=== PATIENT | female | born 1945 | race Caucasian/White ===

== ENCOUNTER 2020-03-31 09:51 | Outpatient (CLI) | payer MEDICARE, SELFPAY ==
--- NOTE | ~2020-03-31 | DEXA_ITS ---
Bone Density Report Name: Erin Russell Age: 74 Sex: Female Ethnicity: White Date of : 1945 Indication: osteopenia; parental hip fracture; height loss; prior fracture; postmenopausal Referring Provider: PATT, BERNARDA Travis Study: Bone densitometry was performed. Exam Date: March 31, 2020 Accession number: [id number] Bone Density: Region BMD T-score Z-score Classification AP Spine (L1-L4) 1.028 -0.2 2.1 Normal Femoral Neck (Left) 0.672 -1.6 0.4 Osteopenia Total Hip (Left) 0.829 -0.9 0.8 Normal Total Hip Bilateral Avg 0.799 -1.1 0.6 Osteopenia Femoral Neck (Right) 0.600 -2.2 -0.2 Osteopenia Total Hip (Right) 0.769 -1.4 0.3 Osteopenia World Health Organization criteria for BMD impression classify patients as: Normal (T-score at or above -1.0), Osteopenia (T-score between -1.0 and -2.5), or Osteoporosis (T-score at or below -2.5). 10-year Fracture Risk(1): Major Osteoporotic Fracture 33% Hip Fracture 16% Reported Risk Factors: [place] (), Neck BMD=0.600, BMI=25.5, previous fracture, parental fracture (1) FRAX(R) Version 3.08. Fracture probability calculated for an untreated patient. Fracture probability may be lower if the patient has received treatment. Previous Exams: Region Exam Age BMD T-score BMD Change BMD Change Date g/cm2 vs Baseline vs Previous AP Spine(L1-L4) 03/31/2020 74 1.028 -0.2 0.003(0.3%)# -0.021(-2.0%) 02/09/2017 71 1.049 0.0 0.024(2.3%)# 0.016(1.5%)# 01/08/2009 63 1.033 -0.1 0.008(0.8%) 0.011(1.1%) 07/22/2006 60 1.022 -0.2 -0.003(-0.3%) -0.003(-0.3%) 09/10/2003 57 1.026 -0.2 Total Hip(Left) 03/31/2020 74 0.829 -0.9 -0.018(-2.2%)# -0.038(-4.4%)* 02/09/2017 71 0.867 -0.6 0.019(2.3%)# 0.030(3.6%)# 01/08/2009 63 0.837 -0.9 -0.011(-1.2%) 0.014(1.7%) 07/22/2006 60 0.823 -1.0 -0.025(-2.9%) -0.025(-2.9%) 09/10/2003 57 0.848 -0.8 Total Hip(Right) 03/31/2020 74 0.769 -1.4 -0.002(-0.2%)# -0.029(-3.6%)* 02/09/2017 71 0.797 -1.2 0.027(3.5%)# 0.030(3.9%)# 01/08/2009 63 0.767 -1.4 -0.003(-0.4%) 0.008(1.1%) 07/22/2006 60 0.759 -1.5 -0.011(-1.5%) -0.011(-1.5%) 09/10/2003 57 0.770 -1.4 *Denotes significance at 95% confidence level, LSC for AP Spine = 0.022 g/cm2, LSC for Total Hip = 0.027 g/cm2 Clinical Information Provided by Patient: Has had a low trauma fracture Parent has had a hip fracture Patient maximum height was 64 Menopause Age: 46 No re
== END 2020-03-31 09:52 | disposition home or self-care (01) ==
PROVIDERS: PCP Internal Medicine; Visit Provider Internal Medicine
DX: Z13.820 Encounter for screening for osteoporosis (principal); Z78.0 Asymptomatic menopausal state; M85.852 Other specified disorders of bone density and structure, left thigh; M85.851 Other specified disorders of bone density and structure, right thigh
CPT/HCPCS: 77080

== ENCOUNTER 2020-07-06 14:58 | Emergency (ER) | payer MEDICARE, SELFPAY ==
--- NOTE | ~2020-07-06 | XR_ITS ---
EXAMINATION: XR chest 1V portable DATE: 07/06/2020 16:02 INDICATION: Fever, fatigue and vomiting TECHNIQUE: frontal view of the chest was obtained. COMPARISON: Chest radiograph dated 02/08/2005 FINDINGS: The lungs remain clear with no focal airspace opacities, pulmonary edema, pleural effusion or pneumot horax. The cardiomediastinal silhouette is normal. Visualized bones and soft tissues are unremarkable . IMPRESSION: 1. No acute cardiopulmonary disease. Reviewed, dictated and finalized at location A.
[2020-07-06 15:01] VITALS: BP 162/78; PULSE 83; RESP 16; TEMP 36.8; O2SAT 98
--- NOTE | 2020-07-06 15:26 | ED.FEVER ---
HPI - Fever General Chief Complaint: Fever Stated Complaint: fever Time Seen by Provider: 07/06/20 15:04 Source: patient Mode of arrival: ambulatory Limitations: no limitations History of Present Illness HPI Narrative: Patient is a 74-year-old female who presents to emergency department for evaluation of fever that began last Tuesday coupled with nausea and vomiting that lasted 1 day with the nausea and vomiting which resolved patient did not take anything for her symptoms patient then notes that she has had some fatigue and what she believes to be fever off and on since patient has not been seen for this complaint Related Data Home Medications Medication Instructions Recorded Confirmed No Home Medications 07/06/20 07/06/20 Allergies Allergy/AdvReac Type Severity Reaction Status Date / Time No Known Allergies Allergy Verified 07/06/20 15:10 Review of Systems Review of Systems: All systems reviewed & are unremarkable except as noted in HPI and below PMFSH Family History Family History (Updated 08/17/16 @ 13:47 by DOCTOR UNKNOWN) Mother Family history of cardiovascular disease Father Family history of congestive heart failure Other Cerebrovascular accident Hypertension Social History Social History Smoking status: Never smoker Second hand tobacco smoke exposure: No Smoking end date: 10/03/89 Alcohol intake: current Exam Narrative: Exam Narrative: GENERAL: Well-appearing, well-nourished, and in no acute distress. HEAD: Normocephalic, atraumatic. EYES: PERRLA and EOMI. ENT: Nares clear, no rhinorrhea or epistaxis. Mucous membranes moist. NECK: Supple. No adenopathy or masses. CHEST: Clear to auscultation. No respiratory distress. No wheezes rales or rhonchi HEART: Regular rate and rhythm. No murmur heard. Normal peripheral pulses. ABDOMEN: Soft, nontender, nondistended EXTREMITIES: Normal range of motion. No edema. SKIN: Warm, dry, no rash. NEURO: No focal deficits. Alert and oriented x3. PSYCH: Normal mood and affect. 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 Patient in the room in no distress given medications in the emergency department no concerning findings in the evaluation advised to follow with primary care for further evaluation Vital Signs Vital signs: Vital Signs Temperature 98.3 F 07/06/20 15:01 Pulse Rate 83 07/06/20 15:01 Respiratory Rate 16 07/06/20 15:01 Blood Pressure 162/78 H 07/06/20 15:01 Pulse Oximetry 98 07/06/20 15:01 Temperature 97.5 F L 07/06/20 15:50 Pulse Rate 69 07/06/20 16:33 Respiratory Rate 20 07/06/20 16:33 Blood Pressure 162/77 H 07/06/20 16:33 Pulse Oximetry 100 07/06/20 16:33 MDM - Fever MDM Narrative Medical decision making narrative: Patient presents in no distress without fever no high risk changes in the blood work or imaging unsure as to the etiology of her symptoms advised to follow with primary care given reasons to return Lab Data Result diagrams: 07/06/20 15:20 07/06/20 15: Labs: Lab Results 07/06/20 07/06/20 07/06/20 Range/Units 15:20 15:20 15:23 WBC 9.9 (4.5-10.0) K/mm3 RBC 3.66 L (4.2-5.4) M/mm3 Hgb 11.3 L (12.0-15.0) g/dL Hct 34.1 L (37.0-47.0) % MCV 93.2 (80-100) fl MCH 30.9 (26-34) pg MCHC 33.1 (32-36) g/dl RDW 12.7 (11.5-14.5) % Plt Count 320 (150-375) k/mm3 MPV 10.7 H (7.4-10.4) fl Immature Gran % (Auto) 0.3 (0-0.5) % Neut % (Auto) 58.9 (45.5-73.1) % Lymph % (Auto) 29.0 (18.3-44.2) % [place] % (Auto) 8.3 (2.6-8.5) % Eos % (Auto) 3.3 (0-4.4) % Baso % (Auto) 0.2 (0.2-1.2) % Lymph # (Auto) 2.88 (0.9-3.2) K/mm3 [place] # (Auto) 0.8 H (0.1-0.6) K/mm3 Eos # (Auto) 0.3 (0-0.3) K/mm3 Baso # (Auto) 0.0 (0.0-0.1) K/mm3 Abs Immat Gran (auto) 0.03 (0.00-0.031) K/mm3 Absolute Neuts (auto) 5.9 (1.3-6.7) K/
[2020-07-06 15:29] LABS: Basophils Percent Auto 0.2 % (0.2-1.2); Eosinophils Absolute Auto 0.3 K/mm3 (0-0.3); Eosinophils Percent Auto 3.3 % (0-4.4); Hematocrit 34.1 % (37.0-47.0); Hemoglobin 11.3 g/dL (12.0-15.0); Immature Granulocyte Absolute 0.03 K/mm3 (0.00-0.031); Immature Granulocyte Percent A 0.3 % (0-0.5); Lymphocytes Absolute Auto 2.88 K/mm3 (0.9-3.2); Mean Corpuscular HGB Conc 33.1 g/dl (32-36); Mean Corpuscular Hemoglobin 30.9 pg (26-34); Mean Corpuscular Volume 93.2 fl (80-100); Mean Platelet Volume 10.7 fl (7.4-10.4); Monocytes Absolute Auto 0.8 K/mm3 (0.1-0.6); Monocytes Percent Auto 8.3 % (2.6-8.5); Neutrophils Absolute Auto 5.9 K/mm3 (1.3-6.7); Neutrophils Percent Auto 58.9 % (45.5-73.1); Platelet Count Result 320 k/mm3 (150-375); Red Blood Count 3.66 M/mm3 (4.2-5.4); Red Cell Distribution Width 12.7 % (11.5-14.5); White Blood Count 9.9 K/mm3 (4.5-10.0)
[2020-07-06 15:41] LABS: Alanine Aminotransferase 27 U/L (4-35); Albumin Level 4.2 g/dL (3.5-5.1); Alkaline Phosphatase 58 U/L (38-126); Anion Gap 10 mmol/L (8-16); Aspartate Amino Transferase 29 U/L (14-36); Bilirubin,Total 0.4 mg/dL (0.2-1.3); Blood Urea Nitrogen 8 mg/dL (7-17); Calcium 9.4 mg/dL (8.4-10.2); Carbon Dioxide 31 mmol/L (22-30); Chloride 97 mmol/L (98-107); Estimated CRCL calculation 35 ml/min; Estimated Glomerular Filt Rate 54; Glucose 92 mg/dL (65-105); Sodium 138 mmol/L (137-145)
[2020-07-06] MEDS: ONDANSETRON INJ 4 MG/2 ML VIAL IV PUSH (15:41)
[2020-07-06 15:42] LABS: Add Urine Microscopic? NO; Appearance Urine Clear (Clear); Bilirubin Urine Negative (Negative); Blood Urine Negative (Negative); Color Urine Colorless (Yellow); Glucose Urine UA Negative (Negative); Ketones Urine Negative (Negative); Leukocyte Esterase Ur Negative LEU/UL (Negative); Nitrate Urine Negative (Negative); Protein Urine Negative (Negative); Specific Grav Ur 1.005 (1.001-1.035); Urobilinogen Urine Negative mg/dL (<2.0)
[2020-07-06] MEDS: FAMOTIDINE 20 MG/2 ML VIAL IV PUSH (15:42)
[2020-07-06] MEDS: LACTATED RINGERS 1,000 ML 999 ML IV CONT (15:47)
[2020-07-06 15:50] VITALS: BP 163/76; PULSE 63; RESP 20; TEMP 36.4; O2SAT 100
[2020-07-06 16:33] VITALS: BP 162/77; PULSE 69; RESP 20; O2SAT 100
[2020-07-06 16:52] VITALS: BP 162/77; PULSE 69; RESP 20; TEMP 36.5; O2SAT 100
== END 2020-07-06 16:54 | disposition home or self-care (01) ==
LOC: ANHED 16:46
PROVIDERS: Emergency Medicine Emergency Medical Services; Emergency Provider Emergency Medicine; PCP Internal Medicine
DX: R50.9 Fever, unspecified (principal)
CPT/HCPCS: 36415; 71045; 80053; 81003; 83605; 85025; 96361; 96365; 96375; 99284; J0131; J2405; J7120

== ENCOUNTER 2020-10-13 08:31 | Outpatient (CLI) | payer MEDICARE, SELFPAY ==
--- NOTE | ~2020-10-13 | MM_ITS ---
EXAMINATION: MM screening wali BI w claudette HISTORY: Screening TECHNIQUE: Craniocaudal and mediolateral oblique 3-D tomosynthesis images were obtained and synthetic 2-D images were generated. CAD analysis was submitted and interpreted. COMPARISON: Comparison to multiple prior studies sequentially, with oldest reviewed study dated 04/15. BREAST PARENCHYMAL COMPOSITION: There are scattered areas of fibroglandular density. FINDINGS: There is no evidence of suspicious mass, calcification, or architectural distortion to sugg est malignancy in either breast. There has been no suspicious interval change. IMPRESSION: 1. No mammographic evidence of malignancy. 2. Recommend routine screening mammography in one year. BI-RADS Category 1: Negative Reviewed, dictated and finalized at location A. EEN MANAGER
== END 2020-10-13 08:32 | disposition home or self-care (01) ==
LOC: ANHIMG 08:34
PROVIDERS: PCP Internal Medicine; Visit Provider Internal Medicine
DX: Z12.31 Encounter for screening mammogram for malignant neoplasm of breast (principal)
CPT/HCPCS: 77063; 77067

== ENCOUNTER 2021-11-17 10:08 | Outpatient (CLI) | payer MEDICARE, SELFPAY ==
--- NOTE | ~2021-11-17 | MM_ITS ---
EXAMINATION: MM screening wali BI w claudette HISTORY: Screening TECHNIQUE: Craniocaudal and mediolateral oblique 3-D tomosynthesis images were obtained and synthetic 2-D images were generated. CAD analysis was submitted and interpreted. COMPARISON: Comparison to multiple prior studies sequentially, with oldest reviewed study dated 04/23. BREAST PARENCHYMAL COMPOSITION: Breast composed of scattered areas of fibroglandular density. FINDINGS: There is no evidence of suspicious mass, calcification, or architectural distortion to sugg est malignancy in either breast. There has been no suspicious interval change. IMPRESSION: 1. No mammographic evidence of malignancy. 2. Recommend routine screening mammography in one year. BI-RADS Category 1: Negative Reviewed, dictated and finalized at location A. [employer] ARCHITECT
== END 2021-11-17 10:09 | disposition home or self-care (01) ==
LOC: ANHIMG 10:11
PROVIDERS: PCP Internal Medicine; Visit Provider Internal Medicine
DX: Z12.31 Encounter for screening mammogram for malignant neoplasm of breast (principal)
CPT/HCPCS: 77063; 77067

== ENCOUNTER → 2022-05-25 12:25 | Outpatient (CLI) | payer MEDICARE, SELFPAY ==
--- NOTE | ~2022-05-25 | DEXA_ITS ---
Bone Density Report Name: JOSUÉ BAKER Age: 76 Sex: Female Ethnicity: White Date of : 1945 Indication: postmenopausal; screening for osteoporosis; parental hip fracture; height loss; prior fracture; Referring Provider: PATT, BERNARDA Travis Study: Bone densitometry was performed. Exam Date: May 25, 2022 Accession number: [id number] Bone Density: Region BMD T-score Z-score Classification AP Spine (L1-L4) 1.138 0.8 3.3 Normal Femoral Neck (Left) 0.672 -1.6 0.5 Osteopenia Total Hip (Left) 0.838 -0.9 1.0 Normal Femoral Neck (Right) 0.660 -1.7 0.4 Osteopenia Total Hip (Right) 0.780 -1.3 0.5 Osteopenia Total Hip Mean 0.809 -1.1 0.8 Osteopenia World Health Organization criteria for BMD impression classify patients as: Normal (T-score at or above -1.0), Osteopenia (T-score between -1.0 and -2.5), or Osteoporosis (T-score at or below -2.5). 10-year Fracture Risk: FRAX not reported because: Treated for osteoporosis Clinical Information Provided by Patient: Has had a low trauma fracture Parent has had a hip fracture Is being treated for osteoporosis Has used the following medications: Fosamax (i.e. alendronate), Vitamin D, Calcium Patient maximum height was 64 Menopause Age: 41 No regular weight bearing exercise Does not regularly consume dairy products Drinks caffeinated beverages Onset of menses at age 17 Number of children 0 Impression: The patient has low bone mass, based on the Right Femoral Neck T-score. The patient has risk factors, including: parental hip fracture, previous fracture. Discussion: It is important to ask patients whether they are taking their medications and to encourage continued and appropriate compliance with their osteoporosis therapies to reduce fracture risk. It is also important to review their risk factors and encourage appropriate calcium and vitamin D intakes, exercise, fall prevention and other lifestyle measures. Follow-Up: Consider a repeat BMD and Vertebral Fracture Assessment (VFA) exam in 2 years or sooner if medically necessary, to reassess this patient's status. Reported by: MARCELO on 05/25/2022 12:58:00 PM. Reviewed, dictated and finalized at location ALei GONZALES
== END ==
PROVIDERS: PCP Internal Medicine; Visit Provider Internal Medicine
DX: M81.0 Age-related osteoporosis without current pathological fracture (principal); M85.852 Other specified disorders of bone density and structure, left thigh; M85.851 Other specified disorders of bone density and structure, right thigh
CPT/HCPCS: 77080

== ENCOUNTER 2024-12-29 09:41 | Emergency (ER) | payer MEDICARE, SELFPAY ==
[2024-12-29] VITALS (9 sets, daily range): BP systolic 140–166; BP diastolic 62–70; PULSE 63–88; RESP 8–16; TEMP 36.3; O2SAT 96–100
--- NOTE | ~2024-12-29 | XR_ITS ---
EXAMINATION: XR scapula RT DATE: 12/29/2024 10:53 INDICATION: Right scapula pain. TECHNIQUE: 2 views of right scapula were obtained. COMPARISON: None. FINDINGS: Alignment is normal. No fracture. There is mild osteoarthritis of glenohumeral joint and ac romioclavicular joint. IMPRESSION: 1. Mild polyarticular osteoarthritis. Reviewed, dictated and finalized at location A.
--- OUTSIDE RECORDS SUMMARY | 2024-12-29 09:43 | XMS_ITS | Data Portability ---
Author Organization [facility] [employer], Main Office Address [address] [place] [address] Assessment No assessment recorded. Plan of Treatment Reminders Order Date Submit Date Provider Last Modified By Organization Details Last Modified Time Details Appointments None recorded. Lab lipid panel, serum 024 024 [email or web address] [facility], [address], [place], [address], 4 13:53:42 CMP, serum or plasma 024 024 [email or web address] [facility], [address], [place], [address], 4 13:53:45 CBC w/ auto diff 024 [address] [employer] [facility], [address], [place], [address], 4 13:19:39 vitamin D, 25-hydrox y, total, serum 023 023 [email or web address] [employer] [facility], [address], [place], [address], 3 16:41:28 magnesium , serum or plasma 023 023 [email or web address] [employer] [facility], [address], [place], [address], 3 16:41:28 vitamin B12, serum 023 023 [id number] [facility], [address], [place], [address], 3 16:41:28 CMP, serum or plasma 023 023 [facility], [address], [place], [address], 3 16:41:27 lipid panel, serum 023 023 [id number] [employer] [facility], [address], [place], [address], 3 16:41:27 CBC w/ auto diff 023 023 [id number] [employer] [facility], [address], [place], [address], 3 16:41:27 TSH, serum or plasma 023 023 [id number] [employer] [facility], [address], [place], [address], 3 16:41:28 T4, free, serum 023 023 [id number] [employer] [facility], [address], [place], [address], 3 16:41:28 Referral None recorded. Procedures None recorded. Surgeries None recorded. Imaging None recorded. Medication Orders None recorded. Patient TargetsNo targets recorded. Patient Instructions Encounter Date Encounter Id Patient Instructions Last Modified By Organization Details Last Modified Time 02/18/2023 [id number] dementia rating scale-2* [email or web address] Not available 02/18/2023 11:24:44 alcohol misuse* [email or web address] Not available 02/18/2023 11:24:44 depression screening* [email or web address] Not available 02/18/2023 11:24:44 multi-dimensiona l health assessment questionnaire* [email or web address] Not available 02/18/2023 11:24:44 Personalized [facility] Plan and Screening Recommendations Advance Directives - Do you have one? Yes Advance Directives - Do we have your advance directive on file in your health record? No, please bring in a copy at your earliest convenience Primary Prevention/Interven tion (prevents or decreases the chance of common diseases from occurring) Smoking Risk: Non Smoker Alcohol Misuse Screening: Negative Weight: Appropriate Physical activity: Need more exercise/physical activity Nutrition: Good Average Fall Risk (screened today): Low Vaccines Pneumococcal: Ordered Recommended today Recommended today, but you have declined No further needed Influenza: Your next one in the fall of this year Chronic Disease Risks Stroke: Low Risk Intermediate Risk I have no recommendations Act carlene diagnosis, Continue current treatment plan Heart Attack: Low risk Intermediate Risk I have no recommendations Act carlene diagnosis, Continue current treatment plan Clogging of the Arteries: Low risk Intermediate Risk I have no recommendations Act carlene diagnosis, Continue current treatment plan Diabetes: Low Risk I have no recommendations Secondary Prevention/Interven tion (detects treatable diseases before they may cause symptoms, disability, or ) Breast Cancer Screening with mammogram: Your next mammogram: Ordered Recommended today Recommended today, but you have declined Cervical/Uterine/Ov deondre Cancer Screening: No screening necessary Osteoporosis Screening: Date Screening Last Performed: Colon Cancer Screening: Colonoscopy In: Ordered Recomme nded Recommended today, but you have declined Date Screening Last Performed: Eye Disease Screening: Dementia Risk: Low I have no recommendations Depression Screening: Negative [email or web address] Not available 02/18/2023 11:12:35 Medicare [facility] s evaluation risk assessment stable. Follow-up hyperlipidemia -GERD -senile osteoporosis. All clinically stable. Refusing both mammogram as well as colon screening studies. Will continue on current medications check blood work consisting of CBC, CMP, magnesium, B12, lipid, thyroid and vitamin-D level. Follow-up in six months [email or web address] Not available 02/18/2023 11:24:13 08/19/2023 [id number] GERD and osteoporosis both clinically stable. Had recent blood work which showed good cholesterol total 175 HDL 71 LDL 84 normal thyroid liver enzymes. Blood sugar normal. Will continue on current Rx follow-up six months.Standard immunizations of RSV, COVID, influenza and shingles as recommended. Portions of the record may have been created with voice recognition software. Occasional wrong-word or s ound-a-like substitutions may have occurred due to the inherent limitations of voice recognition software. Read the chart carefully and recognize, using context, where substitutions have occurred. Job Next Appt: 6 Months Approximate Date: 02/15/2024 [email or web address] Not available 08/19/2023 11:26:32 02/28/2024 [id number] Follow-up for GE RD clinically doing well. No interval complaints of any new problems. Is currently taking famotidine on intermittent basis. Will continue on current Rx. Will check blood work in the form of a CBC, CMP and lipid.. Continue on current Rx follow-up in six months Next Appointment: 6 Months Approximate Date: 08/26/2024 Portions of the record may have been created with voice recognition software. Occasional wrong-word or s ound-a-like substitutions may have occurred due to the inherent limitations of voice recognition software. Read the chart carefully and recognize, using context, where substitutions have occurred. [email or web address] Not available 02/28/2024 11:21:14 08/21/2024 [id number] dementia rating scale-2* [email or web address] Not available 08/21/2024 11:46:56 alcohol misuse* [email or web address] Not available 08/21/2024 11:46:55 depression screening* [email or web address] Not available 08/21/2024 11:46:56 multi-dimensiona l health assessment questionnaire* [email or web address] Not available 08/21/2024 11:46:56 Personalized a lth Plan and Screening Recommendations Advance Directives - Do you have one? Yes Advance Directives - Do we have your advance directive on file in your health record? No, please bring in a copy at your earliest convenience Primary Prevention/Interven tion (prevents or decreases the chance of common diseases from occurring) Smoking Risk: Non Smoker Alcohol Misuse Screening: Negative Weight: Appropriate Physical activity: Need more exercise/physical activity Nutrition: Good Average Fall Risk (screened today): Low Vaccines Pneumococcal: Ordered Recommended today Recommended today, but you have declined No further needed Influenza: Your next one in the fall of this year Chronic Disease Risks Stroke: Low Risk I have no recommendations Heart Attack: Low risk I have no recommendations Clogging of the Arteries: Low risk I have no recommendations Diabetes: Low Risk I have no recommendations Secondary Prevention/Interven tion (detects treatable diseases before they may cause symptoms, disability, or ) Breast Cancer Screening with mammogram: Your next mammogram: Ordered Recommended today Recommended today, but you have declined Cervical/Uterine/Ov deondre Cancer Screening: No screening necessary Osteoporosis Screening: Your next DEXA in: Ordered Recomme nded today Recommended today, but you have declined Date Screening Last Performed: Colon Cancer Screening: Colonoscopy Fecal Occult Blood Cologuard (DNA stool test) Date Screening Last Performed: _2022___ Eye Disease Screening: Dementia Risk: Low I have no recommendations Depression Screening: Negative [email or web address] Not available 08/21/2024 11:38:58 Medicare [facility] evaluation risk assessment stable. Follow-up for GERD as well as hyperlipidemia both clinically stable and doing well. No need for any additional blood tests at this time. Is actually due for mammogram bone density scan is declining both of these currently. Will continue on current Rx follow-up in six months. Follow Up: 6 Months Approximate Date: 02/17/2025 Created: Chris Connolly M.D. 08.21.2024 10:46 AM Portions of the record may have been created with voice recognition software. Occasional wrong-word or s ound-a-like substitutions may have occurred due to the inherent limitations of voice recognition software. Read the chart carefully and recognize, using context, where substitutions have occurred. [email or web address] Not available 08/21/2024 11:46:36 Reason for Referral None Reported. Results Created Date Observation Date Name Description Value Unit Range Abnormal Flag Note LastModifiedBy Organization Detail LastModifiedTime 03/03/2003/03/2023 COMPR EHENS CARLENE METAB OLIC PANEL sodium 140 mmol/ L 137-14 5 Not Available [facility] (Lab) [address] [place], [address], 03/03/2023 13:03:27 03/03/20 23 03/03/2023 COMPR EHENS CARLENE METAB OLIC PANEL potassium 4.5 mmol/ L 3.5-5. 1 Not Available [facility] (Lab) [address] [place], [address], 03/03/2023 13:03:27 03/03/20 23 03/03/2023 COMPR EHENS CARLENE METAB OLIC PANEL chloride 101 mmol/ L 98-107 Not Available [facility] (Lab) [address] [place], [address], 03/03/2023 13:03:27 03/03/20 23 03/03/2023 COMPR EHENS CARLENE METAB OLIC PANEL carbon dioxide 29 mmol/ L 22-30 Not Available [facility] (Lab) [address] [place], [address], 03/03/2023 13:03:27 03/03/20 23 03/03/2023 COMPR EHENS CARLENE METAB OLIC PANEL anion gap 14.5 mmol/ L 14-22 Not Available [facility] (Lab) [address] [place], [address], 03/03/2023 13:03:27 03/03/20 23 03/03/2023 COMPR EHENS CARLENE METAB OLIC PANEL glucose 91 mg/dL 70-99 Not Available [facility] (Lab) [address] [place], [address], 03/03/2023 13:03:27 03/03/20 23 03/03/2023 COMPR EHENS CARLENE METAB OLIC PANEL BUN 12 mg/dL 8-19 Not Available [facility] (Lab) [address] [place], [address], 03/03/2023 13:03:27 03/03/20 23 03/03/2023 COMPR EHENS CARLENE METAB OLIC PANEL creatinine 0.61 mg/dL 0.66-1 .25 low Not Available [facility] (Lab) [address] [place], [address], 03/03/2023 13:03:27 03/03/20 23 03/03/2023 COMPR EHENS CARLENE METAB OLIC PANEL GFR >60 Refer ence Range : Mcintosh ge GFR Healt hy Adult : >60 mL/mi n/1.7 3 m2 Chron ic Kidne y Disea se: 15-60 mL/mi n/1.7 3 m2 Kidne y Failu re: <15/m L/min /1.73 m2 www.n iddk. nih.g ov The MDRD study equat ion has not been valid ated in child rigoberto <18 years of age; pregn ant women ; the elder ly >85 years of age; or in some racia l or ethni c subgr oups, such as Hispa nics. Outsi de the valid ated dean eters , estim ated GFR is less accur ate, requi ring clini layla judgm ent on a case- by-ca se basis . Clini layla inter preta tion for other races and ages must be made by the clini ivan. The MDRD study equat ion has not been valid ated for the evalu ation of serum creat inine relat ed to nutri ricci l statu s or medic ation usage . For perso ns <18 years of age, a pedia tric GFR calcu lator is avail able on the [facility] websi te: https ://alirio mcdonald.zhen jarquin/pr kimberley mendoza s/kdo qi/gf r_cal culat or Not Available [facility] (Lab) [address] [place], [address], 03/03/2023 13:03:27 03/03/2003/03/2023 COMPR EHENS CARLENE METAB OLIC PANEL alkaline phosphatase 43 U/L 38-126 Not Available [facility] (Lab) [address] [place], [address], 03/03/2023 13:03:27 03/03/2003/03/2023 COMPR EHENS CARLENE METAB OLIC PANEL alanine aminotransfe rase 17 U/L 0-35 Not Available [facility] (Lab) [address] [place], [address], 03/03/2023 13:03:27 03/03/20 23 03/03/2023 COMPR EHENS CARLENE METAB OLIC PANEL aspartate aminotransfe rase 25 U/L 15-37 Not Available [facility] (Lab) [address] [place], [address], 03/03/2023 13:03:27 03/03/20 23 03/03/2023 COMPR EHENS CARLENE METAB OLIC PANEL bilirubin, total 0.60 mg/dL 0.20-1 .30 Not Available [facility] (Lab) [address] [place], [address], 03/03/2023 13:03:27 03/03/20 23 03/03/2023 COMPR EHENS CARLENE METAB OLIC PANEL calcium 9.6 mg/dL 8.4-10 .2 Not Available [facility] (Lab) [address] [place], [address], 03/03/2023 13:03:27 03/03/20 23 03/03/2023 COMPR EHENS CARLENE METAB OLIC PANEL total protein 7.3 g/dL 6.3-8. 2 Not Available [facility] (Lab) [address] [place], [address], 03/03/2023 13:03:27 03/03/20 23 03/03/2023 COMPR EHENS CARLENE METAB OLIC PANEL albumin 4.2 g/dL 3.0-4. 4 Not Available [facility] (Lab) [address] [place], [address], 03/03/2023 13:03:27 03/03/20 23 03/03/2023 COMPR EHENS CARLENE METAB OLIC PANEL globulin 3.1 g/dL 2.6-4. 2 Not Available [facility] (Lab) [address] [place], [address], 03/03/2023 13:03:27 03/03/20 23 03/03/2023 COMPR EHENS CARLENE METAB OLIC PANEL A/G ratio 1.4 ratio 1.0-2. 0 Not Available [facility] (Lab) [address] [place] [address], [address], 03/03/2023 13:03:27 03/03/20 23 03/03/2023 LIPID PANEL cholesterol 175 mg/dL 140-19 9 NIH APOLINAR NSUS RECOM MENDA TION FOR ELMER STERO L: ADULT CHILD LOW RISK: <200 <170 BORDE RLINE : <200- 239 ----- HIGH RISK: >240 >200 Not Available [facility] (Lab) [address] [place] [address], [address], 03/03/2023 13:03:29 03/03/20 23 03/03/2023 LIPID PANEL triglyceride s 101 mg/dL 0-150 NIH APOLINAR NSUS REPOR T RECOM MENDA TION FOR TRIGL YCERI DUTCH: ADULT CHILD LOW RISK: <150 ----- BODER LINE: 150-1 99 ----- HIGH RISK: >200 ----- Not Available [facility] (Lab) [address] [place] [address], [address], 03/03/2023 13:03:29 03/03/20 23 03/03/2023 LIPID PANEL HDL cholesterol 71 mg/dL 40- Not Available [facility] (Lab) [address] [place] [address], [address], 03/03/2023 13:03:29 03/03/20 23 03/03/2023 LIPID PANEL LDL cholesterol, calculated 84 mg/dL 0-130 NIH APOLINAR NSUS REPOR T RECOM MENDA TIONS FOR LDL: ADULT CHILD LOW RISK <130 <110 (OPTI MAL LDL) <100 ----- BORDE RLINE : 130-1 59 ----- HIGH RISK: >160 >130 A TRIGL YCERI DE RESUL T >400 INVAL IDATE S THE CALCU LATIO N FOR LDL FRACT IONAT ION - THE LDL RESUL T WILL NOT BE REPOR THEODORE. Not Available [facility] (Lab) [address] [place], [address], 03/03/2023 13:03:29 03/03/20 23 03/03/2023 MAGNE SIUM magnesium 2.1 mg/dL 1.6-2. 3 Not Available [facility] (Lab) [address] [place], [address], 03/03/2023 13:03:30 03/03/20 23 03/03/2023 VITAM IN D 25-HY DROXY [id number] 38.1 NG/mL 30-100 Vitam in D Statu s: Defic ient: <20 ng/mL Insuf ficie nt: 20-29 ng/mL Suffi cient : 30-10 0 ng/mL Not Available [facility] (Lab) [address] [place], [address], 03/03/2023 13:18:18 03/03/20 23 03/03/2023 CBC/C OMPLE TE BLD COUNT W/DIF F white blood cells 8.0 x10'3 /uL 4.2-10 .8 Not Available [facility] (Lab) [address] [place], [address], 03/03/2023 13:32:53 03/03/20 23 03/03/2023 CBC/C OMPLE TE BLD COUNT W/DIF F red blood cells 3.89 x10'6 /uL 3.80-5 .20 Not Available [facility] (Lab) [address] [place], [address], 03/03/2023 13:32:53 03/03/20 23 03/03/2023 CBC/C OMPLE TE BLD COUNT W/DIF F hemoglobin 12.0 g/dL 12.0-1 5.6 Not Available [facility] (Lab) [address] [place], [address], 03/03/2023 13:32:53 03/03/20 23 03/03/2023 CBC/C OMPLE TE BLD COUNT W/DIF F hematocrit 37.6 % 35.7-4 5.7 Not Available [facility] (Lab) [address] [facility] [place], [address], 03/03/2023 13:32:53 03/03/20 23 03/03/2023 CBC/C OMPLE TE BLD COUNT W/DIF F mean red cell volume 96.7 fL 82.0-9 9.0 Not Available [facility] (Lab) [address] [place], [address], 03/03/2023 13:32:53 03/03/20 23 03/03/2023 CBC/C OMPLE TE BLD COUNT W/DIF F mean red cell hemoglobin 30.8 pg 27.0-3 3.0 Not Available [facility] (Lab) [address] [place], [address], 03/03/2023 13:32:53 03/03/20 23 03/03/2023 CBC/C OMPLE TE BLD COUNT W/DIF F mean RBC HGB concentratio n 31.9 g/dL 31.0-3 6.0 Not Available [facility] (Lab) [address] [place], [address], 03/03/2023 13:32:53 03/03/20 23 03/03/2023 CBC/C OMPLE TE BLD COUNT W/DIF F red cell distribution width 13.3 % 11.8-1 5.5 Not Available [facility] (Lab) [address] [place], [address], 03/03/2023 13:32:53 03/03/20 23 03/03/2023 CBC/C OMPLE TE BLD COUNT W/DIF F platelets 246 x10'3 /uL 150-40 0 Not Available [facility] (Lab) [address] [place], [address], 03/03/2023 13:32:53 03/03/20 23 03/03/2023 CBC/C OMPLE TE BLD COUNT W/DIF F mean platelet volume 11.5 fL 9.0-12 .4 Not Available [facility] (Lab) [address] [facility] [place], [address], 03/03/2023 13:32:53 03/03/20 23 03/03/2023 CBC/C OMPLE TE BLD COUNT W/DIF F neutrophils 49.0 % 39.0-7 2.0 Not Available [facility] (Lab) [address] [place], [address], 03/03/2023 13:32:53 03/03/20 23 03/03/2023 CBC/C OMPLE TE BLD COUNT W/DIF F lymphocytes 38.7 % 16.0-4 7.0 Not Available [facility] (Lab) [address] [place], [address], 03/03/2023 13:32:53 03/03/20 23 03/03/2023 CBC/C OMPLE TE BLD COUNT W/DIF F monocytes 7.9 % 5.0-12 .0 Not Available [facility] (Lab) [address] [place], [address], 03/03/2023 13:32:53 03/03/20 23 03/03/2023 CBC/C OMPLE TE BLD COUNT W/DIF F eosinophils 3.8 % 1.0-7. 0 Not Available [facility] (Lab) [address] [place], [address], 03/03/2023 13:32:53 03/03/20 23 03/03/2023 CBC/C OMPLE TE BLD COUNT W/DIF F basophils 0.3 % 0.0-2. 0 Not Available [facility] (Lab) [address] [place], [address], 03/03/2023 13:32:53 03/03/20 23 03/03/2023 CBC/C OMPLE TE BLD COUNT W/DIF F immature granulocytes 0.3 % 0.00-0 .50 Not Available [facility] (Lab) [address] [place], [address], 03/03/2023 13:32:53 03/03/20 23 03/03/2023 CBC/C OMPLE TE BLD COUNT W/DIF F neutrophils, absolute count 3.91 x10'3 /uL 1.5-8. 0 Not Available [facility] (Lab) [address] [place], [address], 03/03/2023 13:32:53 03/03/20 23 03/03/2023 CBC/C OMPLE TE BLD COUNT W/DIF F lymphocytes, absolute count 3.08 x10'3 /uL 1.07-3 .43 Not Available [facility] (Lab) [address] [place], [address], 03/03/2023 13:32:53 03/03/20 23 03/03/2023 CBC/C OMPLE TE BLD COUNT W/DIF F monocytes, absolute count 0.63 x10'3 /uL 0.29-0 .99 Not Available [facility] (Lab) [address] [place], [address], 03/03/2023 13:32:53 03/03/20 23 03/03/2023 CBC/C OMPLE TE BLD COUNT W/DIF F eosinophils, absolute count 0.30 x10'3 /uL 0.02-0 .53 Not Available [facility] (Lab) [address] [place], [address], 03/03/2023 13:32:53 03/03/20 23 03/03/2023 CBC/C OMPLE TE BLD COUNT W/DIF F basophils, absolute count 0.02 x10'3 /uL 0.01-0 .08 Not Available [facility] (Lab) [address] [place], [address], 03/03/2023 13:32:53 03/03/20 23 03/03/2023 CBC/C OMPLE TE BLD COUNT W/DIF F immature granulocytes ,absolute 0.02 x10'3 /uL 0.00-0 .05 Not Available [facility] (Lab) [address] [place], [address], 03/03/2023 13:32:53 03/03/20 23 03/03/2023 CBC/C OMPLE TE BLD COUNT W/DIF F nucleated red blood cells 0.0 % -0 Not Available [facility] (Lab) [address] [place], [address], 03/03/2023 13:32:53 03/03/20 23 03/03/2023 CBC/C OMPLE TE BLD COUNT W/DIF F NRBC# 0.00 x10'3 /uL Not Available [facility] (Lab) [address] [place], [address], 03/03/2023 13:32:53 03/03/20 23 03/03/2023 VITAM IN B12 (JUAN FATOU ) vb12 480 pg/mL 239-93 1 Not Available [facility] (Lab) [address] [place], [address], 03/03/2023 13:55:22 03/03/20 23 03/03/2023 T4 FREE free T4 1.07 NG/dL 0.78-2 .19 Not Available [facility] (Lab) [address] [place], [address], 03/03/2023 14:35:56 03/03/20 23 03/03/2023 TSH thyroid-stim ulating hormone 2.300 uIU/m L 0.465- 4.680 Not Available [facility] (Lab) [address] [facility] [place], [address], 03/03/2023 14:37:08 08/30/20 23 08/30/2023 COLOG UARD cologuard result reportable NEGATI VE negati ve normal NEGAT CARLENE TEST RESUL T. A negat carlene Colog uard resul t indic ates a low likel ihood that a color ectal cance r (CRC) or advan akanksha adeno ma (brandon omato us polyp s with more advan akanksha pre-m align ant featu res) is prese nt. The chanc e that a perso n with a negat carlene Colog uard test has a color ectal cance r is less than 1 in 1500 (nega tive predi ctive value >99.9 %) or has an advan akanksha adeno ma is less than 5.3% (nega tive predi ctive value 94.7% ). These data are based on a prosp ectiv e cross -sect ional study of 10,00 0 indiv idual s at [facility] risk for color ectal cance r who were scree tia with both Colog uard and colon oscop y. (Jayne Garcia. et al, N Engl J Med 2014; 370(1 4):12 86-12 97) The mason l value (refe rence range ) for this assay is negat carlene. COLOG UARD RE-SC REENI NG RECOM MENDA TION: Perio dic color ectal cance r scree andie is an impor tant part of preve ntive healt hcare for asymp tomat ic indiv idual s at [facility] risk for color ectal cance r. Follo wing a negat carlene Colog uard resul t, the Ameri can Cance r Socie ty and U.S. Multi -Soci ety Task Force scree andie guide lines recom mend a Colog uard re-sc reeni ng inter sohail of 3 years . Refer ences : Ameri can Cance r Socie ty Guide line for Color ectal Cance r Scree andie: https ://alirio w.can cer.o rg/ca ncer/ colon -rect al-ca ncer/ detec tion- diagn osis- stagi ng/ac s-rec ommen datio ns.ht ml.; Heri ESPOSITO, Sadaf GODINEZ, Esmer MorelosK, Color ectal Cance r Scree andie: Recom menda tions for Physi cians and Patie nts from the U.S. Multi -Soci ety Task Force on Color ectal Cance r Scree andieSuzette crow y 2017; 112:1 016-1 030. TEST DESCR IPTIO N: [place] site algor ithmi c allan sis of stool DNA-b ioabbey kers with hemog lobin immun oassa y. Quant itati ve value s of indiv idual bioma rkers are not repor table and are not assoc iated with ind idual bioma rker resul t refer ence range s. Colog uard is inten ded for color ectal cance r scree andie of adult s of eithe r sex, 45 years or older , who are at [facility] for color ectal cance r (CRC) . Colog uard has been appro jessica for use by the U.[place]. FDA. The perfo rmanc e of Colog uard was estab lishe d in a cross secti onal study of [facility] adult s aged 50-84 . Colog uard perfo rmanc e in patie nts ages 45 to 49 years was estim ated by sub-g roup allan sis of near- age group s. Colon oscop ies perfo rmed for a posit carlene resul t may find as the most clini cecilia signi ficethan t lesio n: color ectal cance r [4.0% ], advan akanksha adeno ma (incl uding sessi le wendy theodore polyp s great er than or equal to 1cm diame ter) [20%] or non- advan akanksha adeno ma [31%] ; or no color ectal neopl carlos [45%] . These estim ates are deriv ed from a prosp ectiv e cross -sect ional scree andie study of 10,00 0 indiv idual s at [facility] risk for color ectal cance r who were scree tia with both Colog uard and colon oscop y. (Jayne Travis et al, N Engl J Med 2014; 370(1 4):12 86-12 97.) Colog uard may produ ce a false negat carlene or false posit carlene resul t (no color ectal cance r or preca ncero us polyp prese nt at colon oscop y follo w up). A negat carlene Colog uard test resul t does not guara ntee the absen ce of CRC or advan akanksha adeno ma (pre- cance r). The curre nt Colog uard scree andie inter sohail is every 3 years . (Amer ican Cance r Socie ty and [place] Multi -Soci ety Task Force ). Colog uard perfo rmanc e data in a ,00 0 patie nt pivot al study using colon oscop y as the refer ence metho d can be acces sed at the follo wing locat ion: www.e xactl abs.c om/re sults . Addit ional descr iptio n of the Colog uard test proce ss, warni ngs and preca ution s can be found at www.c ologu vidal.c om. Not Available [facility] (Cologuard Orders Only) [address], [place], [address], 09/06/2023 17:25:06 03/12/20 24 03/12/2024 CBC/C OMPLE TE BLD COUNT W/DIF F white blood cells 7.5 x10'3 /uL 4.2-10 .8 Not Available [facility] (Lab) [address] [place], [address], 03/12/2024 13:19:39 03/12/2003/12/2024 CBC/C OMPLE TE BLD COUNT W/DIF F red blood cells 4.00 x10'6 /uL 3.80-5 .20 Not Available [facility] (Lab) [address] [place], [address], 03/12/2024 13:19:39 03/12/20 24 03/12/2024 CBC/C OMPLE TE BLD COUNT W/DIF F hemoglobin 12.7 g/dL 12.0-1 5.6 Not Available [facility] (Lab) [address] [place], [address], 03/12/2024 13:19:39 03/12/20 24 03/12/2024 CBC/C OMPLE TE BLD COUNT W/DIF F hematocrit 38.1 % 35.7-4 5.7 Not Available [facility] (Lab) [address] [place], [address], 03/12/2024 13:19:39 03/12/20 24 03/12/2024 CBC/C OMPLE TE BLD COUNT W/DIF F mean red cell volume 95.3 fL 82.0-9 9.0 Not Available [facility] (Lab) [address] [place], [address], 03/12/2024 13:19:39 03/12/20 24 03/12/2024 CBC/C OMPLE TE BLD COUNT W/DIF F mean red cell hemoglobin 31.8 pg 27.0-3 3.0 Not Available [facility] (Lab) [address] [place], [address], 03/12/2024 13:19:39 03/12/20 24 03/12/2024 CBC/C OMPLE TE BLD COUNT W/DIF F mean RBC HGB concentratio n 33.3 g/dL 31.0-3 6.0 Not Available [facility] (Lab) [address] [place], [address], 03/12/2024 13:19:39 03/12/20 24 03/12/2024 CBC/C OMPLE TE BLD COUNT W/DIF F red cell distribution width 13.2 % 11.8-1 5.5 Not Available [facility] (Lab) [address] [place], [address], 03/12/2024 13:19:39 03/12/20 24 03/12/2024 CBC/C OMPLE TE BLD COUNT W/DIF F platelets 223 x10'3 /uL 150-40 0 Not Available [facility] (Lab) [address] [place], [address], 03/12/2024 13:19:39 03/12/20 24 03/12/2024 CBC/C OMPLE TE BLD COUNT W/DIF F mean platelet volume 12.2 fL 9.0-12 .4 Not Available [facility] (Lab) [address] [place], [address], 03/12/2024 13:19:39 03/12/20 24 03/12/2024 CBC/C OMPLE TE BLD COUNT W/DIF F neutrophils 50.3 % 39.0-7 2.0 Not Available [facility] (Lab) [address] [place], [address], 03/12/2024 13:19:39 03/12/20 24 03/12/2024 CBC/C OMPLE TE BLD COUNT W/DIF F lymphocytes 35.2 % 16.0-4 7.0 Not Available [facility] (Lab) [address] [place], [address], 03/12/2024 13:19:39 03/12/20 24 03/12/2024 CBC/C OMPLE TE BLD COUNT W/DIF F monocytes 8.5 % 5.0-12 .0 Not Available [facility] (Lab) [address] [place], [address], 03/12/2024 13:19:39 03/12/20 24 03/12/2024 CBC/C OMPLE TE BLD COUNT W/DIF F eosinophils 5.2 % 1.0-7. 0 Not Available [facility] (Lab) [address] [place], [address], 03/12/2024 13:19:39 03/12/20 24 03/12/2024 CBC/C OMPLE TE BLD COUNT W/DIF F basophils 0.4 % 0.0-2. 0 Not Available [facility] (Lab) [address] [place], [address], 03/12/2024 13:19:39 03/12/20 24 03/12/2024 CBC/C OMPLE TE BLD COUNT W/DIF F immature granulocytes 0.4 % 0.00-0 .50 Not Available [facility] (Lab) [address] [place], [address], 03/12/2024 13:19:39 03/12/20 24 03/12/2024 CBC/C OMPLE TE BLD COUNT W/DIF F neutrophils, absolute count 3.77 x10'3 /uL 1.5-8. 0 Not Available [facility] (Lab) [address] [place], [address], 03/12/2024 13:19:39 03/12/20 24 03/12/2024 CBC/C OMPLE TE BLD COUNT W/DIF F lymphocytes, absolute count 2.64 x10'3 /uL 1.07-3 .43 Not Available [facility] (Lab) [address] [place], [address], 03/12/2024 13:19:39 03/12/20 24 03/12/2024 CBC/C OMPLE TE BLD COUNT W/DIF F monocytes, absolute count 0.64 x10'3 /uL 0.29-0 .99 Not Available [facility] (Lab) [address] [place], [address], 03/12/2024 13:19:39 03/12/20 24 03/12/2024 CBC/C OMPLE TE BLD COUNT W/DIF F eosinophils, absolute count 0.39 x10'3 /uL 0.02-0 .53 Not Available [facility] (Lab) [address] [place], [address], 03/12/2024 13:19:39 03/12/20 24 03/12/2024 CBC/C OMPLE TE BLD COUNT W/DIF F basophils, absolute count 0.03 x10'3 /uL 0.01-0 .08 Not Available [facility] (Lab) [address] [place], [address], 03/12/2024 13:19:39 03/12/20 24 03/12/2024 CBC/C OMPLE TE BLD COUNT W/DIF F immature granulocytes ,absolute 0.03 x10'3 /uL 0.00-0 .05 Not Available [facility] (Lab) [address] [place], [address], 03/12/2024 13:19:39 03/12/20 24 03/12/2024 CBC/C OMPLE TE BLD COUNT W/DIF F nucleated red blood cells 0.0 % -0 Not Available [facility] (Lab) [address] [place], [address], 03/12/2024 13:19:39 03/12/20 24 03/12/2024 CBC/C OMPLE TE BLD COUNT W/DIF F NRBC# 0.00 x10'3 /uL Not Available [facility] (Lab) [address] [place], [address], 03/12/2024 13:19:39 03/12/20 24 03/12/2024 LIPID PANEL cholesterol 164 mg/dL 140-19 9 NIH APOLINAR NSUS RECOM MENDA TION FOR ELMER STERO L: ADULT CHILD LOW RISK: <200 <170 BORDE RLINE : <200- 239 ----- HIGH RISK: >240 >200 Not Available [facility] (Lab) [address] [place], [address], 03/12/2024 13:53:42 03/12/20 24 03/12/2024 LIPID PANEL triglyceride s 123 mg/dL 0-150 NIH APOLINAR NSUS REPOR T RECOM MENDA TION FOR TRIGL YCERI DUTCH: ADULT CHILD LOW RISK: <150 ----- BODER LINE: 150-1 99 ----- HIGH RISK: >200 ----- Not Available [facility] (Lab) [address] [place], [address], 03/12/2024 13:53:42 03/12/20 24 03/12/2024 LIPID PANEL HDL cholesterol 64 mg/dL 40- Not Available [facility] (Lab) [address] [place], [address], 03/12/2024 13:53:42 03/12/20 24 03/12/2024 LIPID PANEL LDL cholesterol, calculated 75 mg/dL 0-130 NIH APOLINAR NSUS REPOR T RECOM MENDA TIONS FOR LDL: ADULT CHILD LOW RISK <130 <110 (OPTI MAL LDL) <100 ----- BORDE RLINE : 130-1 59 ----- HIGH RISK: >160 >130 A TRIGL YCERI DE RESUL T >400 INVAL IDATE S THE CALCU LATIO N FOR LDL FRACT IONAT ION - THE LDL RESUL T WILL NOT BE REPOR THEODORE. Not Available [facility] (Lab) [address] [place], [address], 03/12/2024 13:53:42 03/12/20 24 03/12/2024 COMPR EHENS CARLENE METAB OLIC PANEL sodium 137 mmol/ L 137-14 5 Not Available [facility] (Lab) [address] [place], [address], 03/12/2024 13:53:45 03/12/20 24 03/12/2024 COMPR EHENS CARLENE METAB OLIC PANEL potassium 4.3 mmol/ L 3.5-5. 1 Not Available [facility] (Lab) [address] [place], [address], 03/12/2024 13:53:45 03/12/20 24 03/12/2024 COMPR EHENS CARLENE METAB OLIC PANEL chloride 106 mmol/ L 98-107 Not Available [facility] (Lab) [address] [place], [address], 03/12/2024 13:53:45 03/12/20 24 03/12/2024 COMPR EHENS CARLENE METAB OLIC PANEL carbon dioxide 28 mmol/ L 22-30 Not Available [facility] (Lab) [address] [place], [address], 03/12/2024 13:53:45 03/12/20 24 03/12/2024 COMPR EHENS CARLENE METAB OLIC PANEL anion gap 7.3 mmol/ L 14-22 low Not Available [facility] (Lab) [address] [place], [address], 03/12/2024 13:53:45 03/12/20 24 03/12/2024 COMPR EHENS CARLENE METAB OLIC PANEL glucose 98 mg/dL 70-99 Not Available [facility] (Lab) [address] [place], [address], 03/12/2024 13:53:45 03/12/20 24 03/12/2024 COMPR EHENS CARLENE METAB OLIC PANEL BUN 10 mg/dL 8-19 Not Available [facility] (Lab) [address] [place], [address], 03/12/2024 13:53:45 03/12/20 24 03/12/2024 COMPR EHENS CARLENE METAB OLIC PANEL creatinine 0.59 mg/dL 0.66-1 .25 low Not Available [facility] (Lab) [address] [place], [address], 03/12/2024 13:53:45 03/12/20 24 03/12/2024 COMPR EHENS CARLENE METAB OLIC PANEL GFR >60 Refer ence Range : Mcintosh ge GFR Healt hy Adult : >60 mL/mi n/1.7 3 m2 Chron ic Kidne y Disea se: 15-60 mL/mi n/1.7 3 m2 Kidne y Failu re: <15/m L/min /1.73 m2 www.n iddk. nih.g ov The MDRD study equat ion has not been valid ated in child rigoberto <18 years of age; pregn ant women ; the elder ly >85 years of age; or in some racia l or ethni c subgr oups, such as Hispa nics. Outsi de the valid ated dean eters , estim ated GFR is less accur ate, requi ring clini layla judgm ent on a case- by-ca se basis . Clini layla inter preta tion for other races and ages must be made by the clini ivan. The MDRD study equat ion has not been valid ated for the evalu ation of serum creat inine relat ed to nutri ricci l statu s or medic ation usage . For perso ns <18 years of age, a pedia tric GFR calcu lator is avail able on the [facility] websi te: https ://alirio w.kid harry.o rg/pr ofess ional s/kdo qi/gf r_cal culat or Not Available [facility] (Lab) [address] [place], [address], 03/12/2024 13:53:45 03/12/20 24 03/12/2024 COMPR EHENS CARLENE METAB OLIC PANEL alkaline phosphatase 40 U/L 38-126 Not Available [facility] (Lab) [address] [place], [address], 03/12/2024 13:53:45 03/12/20 24 03/12/2024 COMPR EHENS CARLENE METAB OLIC PANEL alanine aminotransfe rase 17 U/L 0-35 Not Available [facility] (Lab) [address] [place], [address], 03/12/2024 13:53:45 03/12/20 24 03/12/2024 COMPR EHENS CARLENE METAB OLIC PANEL aspartate aminotransfe rase 27 U/L 15-37 Not Available [facility] (Lab) [address] [place], [address], 03/12/2024 13:53:45 03/12/20 24 03/12/2024 COMPR EHENS CARLENE METAB OLIC PANEL bilirubin, total 0.80 mg/dL 0.20-1 .30 Not Available [facility] (Lab) [address] [place], [address], 03/12/2024 13:53:45 03/12/20 24 03/12/2024 COMPR EHENS CARLENE METAB OLIC PANEL calcium 9.5 mg/dL 8.4-10 .2 Not Available [facility] (Lab) [address] [place], [address], 03/12/2024 13:53:45 03/12/20 24 03/12/2024 COMPR EHENS CARLENE METAB OLIC PANEL total protein 7.1 g/dL 6.3-8. 2 Not Available [facility] (Lab) [address] [place], [address], 03/12/2024 13:53:45 03/12/20 24 03/12/2024 COMPR EHENS CARLENE METAB OLIC PANEL albumin 4.3 g/dL 3.0-4. 4 Not Available [facility] (Lab) [address] [place], [address], 03/12/2024 13:53:45 03/12/20 24 03/12/2024 COMPR EHENS CARLENE METAB OLIC PANEL globulin 2.8 g/dL 2.6-4. 2 Not Available [facility] (Lab) [address] [place], [address], 03/12/2024 13:53:45 03/12/20 24 03/12/2024 COMPR EHENS CARLENE METAB OLIC PANEL A/G ratio 1.5 ratio 1.0-2. 0 Not Available [facility] (Lab) [address] [place], [address], 03/12/2024 13:53:45 Result Notes None recorded. Problems Name Problem SNOMED Code Status Onset Date Resolution Date Notes Provider Name and Address Organization Details Recorded Time Senile osteoporosis 79564138 Active 2021 Not Available [facility] 3 07:30:39 Abdominal pain 73797100 Active Not Available [facility] 3 07:30:39 Gastroesophag eal reflux disease 450320014 Active 2020 Not Available [facility] 3 07:30:39 Psoriasis of scalp 905448814 Active Not Available [facility] 3 07:30:39 Acute allergic reaction 061036358 Active Not Available [facility] 3 07:30:40 Headache 80103729 Active Not Available [facility] 3 07:30:40 Anemia 594699862 Active Not Available [facility] 3 07:30:40 Acute otitis media 0724392 Active Not Available [facility] 3 07:30:40 Sinusitis 03075553 Active Not Available [facility] 3 07:30:40 Near syncope 915945170 Active Not Available [facility] 3 07:30:40 Hyperlipidemi a 69906055 Active Not Available [facility] 3 07:30:40 Alopecia 92918282 Active Not Available [facility] 3 07:30:40 Supraventricu lar tachycardia 1814695 Active Not Available [facility] 3 07:30:40 Osteoporosis 48252708 Active 2020 Not Available [facility] 3 07:30:40 Palpitations 27271695 Active Not Available [facility] 3 07:30:41 Fatigue 40872691 Active Not Available [facility] 3 07:30:41 Pruritus ani 37900931 Active Not Available [facility] 3 07:30:41 Problem Notes None recorded. Procedures Surgical History Date Name Laterality Status Provider Name and Address Organization Details Recorded Time 4 Medicare Wellness CPT Code, subsequent completed Mariam Carrera RN [facility] [employer] [facility] 08/21/2024 11:31:46 3 Medicare Wellness CPT Code, subsequent completed KRYSTEN Mensah [facility] [employer] [facility] 02/18/2023 11:07:38 Imaging Results None recorded. Procedure Notes None recorded. Medical Equipment None Reported. Allergies Allergen ID Allergen Name Allergen Category Reaction Reaction Severity Criticality Documentation Date Start Date Code Code System Note Provider Name and Address Organization Details Recorded Time 82950 Premarin medicatio n rash Not available Not available 12/01/2022 6 RxNorm Not Available [facility] 3 07:36:03 Medications Name Sig Start Date Stop Date Status Note LastModified by Organization Details LastModified Time ketoconazo le 2 % shampoo USE SHAMPOO DAILY FOR TWO WEEKS THEN TWICE PER WEEK. active Not Available Not Available No t Available prednisone 20 mg tablet take 4 tabs daily x4 days, then 3 tabs daily x 4 days then 2 tabs daily x 4days and then 1 tab daily x4 days active Not Available Not Available No t Available alendronat e 70 mg tablet TAKE 1 TABLET BY MOUTH ONE TIME PER WEEK 2024 active Not Available Not Available Not Avai lable triamcinol one acetonide 0.1 % topical cream 06/29 completed Not Available Not Available Not Available Kenalog 40 mg/mL suspension for injection 11/27 completed Not Available Not Available Not Available lorazepam 0.5 mg tablet Take1 TABLET 1/ 2 HOUR PRIOR TO PROCEDURE CAN REPEAT THE DOSE IF NEEDED active Not Available Not Available No t Available triamcinol one acetonide 0.025 % topical cream active Not Available Not Available Not Available Proctozone -HC 2.5 % topical cream perineal applicator Insert 1 applicati on twice a day by rectal route. active Not Available Not Available No t Available omeprazole 20 mg capsule,de layed release TAKE 1 CAPSULE BY MOUTH EVERY DAY 02/27 completed Not Available Not Available Not Available mometasone 0.1 % topical ointment APPLY TO AFFECTED AREA TO SCALP 1 TO 2 TIMES DAILY FOR 2 WEEKS NEEDED FOR FLARES active Not Available Not Available No t Available metoprolol succinate ER 25 mg tablet,ext ended release 24 hr Take 1 tablet every day by oral route for 30 days. active Not Available Not Available No t Available amoxicilli n 875 mg-potassi um clavulanat e 125 mg tablet Take 1 tablet every 12 hours by oral route for 10 days. 01/30 completed Not Available Not Available Not Available Restore 08/19 completed 1 tabl twice daily (eye vitami n) Not Available Not Available Not Available Calcium 600 with Vitamin D3 take once daily 08/19 completed Not Available Not Available Not Available mometasone 0.1 % topical solution APPLY A FEW DROPS TO THE AFFECTED AREA(S) BY TOPICAL ROUTE ONCE DAILY AFTER SHAMPOOIN G active PRN Not Available Not Available No t Available PEG-3350 with flavor packs 420 gram oral solution 06/29 completed Not Available Not Available Not Available Os-Layla 500 + D3 500 mg-15 mcg (600 unit) tablet Take 1 tablet twice a day by oral route. active Not Available Not Available No t Available Vitals Date Recorded Body mass index (BMI) Body height Oxygen saturation Oxygen saturation in Arterial blood by Pulse oximetry Heart rate Body temperature Body weight Systolic blood pressure Diastolic blood pressure Provider Name and Address Organization Details Last Updated DateTime 2 24.1 kg/m2 157.48 cm 98 % 98 % 72 /min 96.9 [degF] 30466.1 9 g 120 mm[Hg] 72 mm[Hg] Not Available [facility] 3 07:29:39 Date Recorded Body height Body mass index (BMI) Body weight Body temperature Heart rate Oxygen saturation Oxygen saturation in Arterial blood by Pulse oximetry Systolic blood pressure Diastolic blood pressure Provider Name and Address Organization Details Last Updated DateTime 3 157.48 cm 24.7 kg/m2 12240.9 7 g 97.7 [degF] 71 /min 98 % 98 % 138 mm[Hg] 70 mm[Hg] Xiao Rubalcava MA [place] [employer] [facility] 3 11:03:56 Date Recorded Pain severity - 0-10 verbal numeric rating [Score] - Reported Provider Name and Address Organization Details Last Updated DateTime 02/18/2023 0 Mariam Carrera RN [facility] 02/18/2023 11:07:55 Date Recorded Body height Body mass index (BMI) Body weight Heart rate Body temperature Oxygen saturation Oxygen saturation in Arterial blood by Pulse oximetry Systolic blood pressure Diastolic blood pressure Provider Name and Address Organization Details Last Updated DateTime 3 157.48 cm 24.5 kg/m2 91358.3 8 g 71 /min 97 [degF] 97 % 97 % 122 mm[Hg] 64 mm[Hg] Shahrzad [facility] 3 11:16:37 Date Recorded Body height Body mass index (BMI) Body weight Heart rate Body temperature Oxygen saturation Oxygen saturation in Arterial blood by Pulse oximetry Systolic blood pressure Diastolic blood pressure Provider Name and Address Organization Details Last Updated DateTime 4 157.48 cm 24.3 kg/m2 66497.7 9 g 80 /min 97 [degF] 97 % 97 % 120 mm[Hg] 68 mm[Hg] Shahrzad [facility] 4 11:01:17 Date Recorded Body height Body mass index (BMI) Body weight Heart rate Body temperature Oxygen saturation Oxygen saturation in Arterial blood by Pulse oximetry Systolic blood pressure Diastolic blood pressure Provider Name and Address Organization Details Last Updated DateTime 4 157.48 cm 24 kg/m2 21991.6 g 71 /min 97 [degF] 98 % 98 % 132 mm[Hg] 72 mm[Hg] ELDON Dixon [facility] 4 11:27:26 Date Recorded Pain severity - 0-10 verbal numeric rating [Score] - Reported Provider Name and Address Organization Details Last Updated DateTime 08/21/2024 0 Mariam Carrera RN [facility] 08/21/2024 11:32:01 Social History Question Answer Notes LastModified by Organization Details LastModified Time Tobacco Smoking Status Former Smoker Patient does not remember the dates. Not Available [facility] 12/01/2022 07:26:09 Do You Have An Advance Directive? No Patient Stated She Already Has The Information At Home. [id number].[id number] [id number] Information not available 12/01/2022 What Is Your Level Of Alcohol Consumption? Moderate [email or web address] Information not available 08/21/2024 Are You Blind Or Do You Have Difficulty Seeing? No MIGRATION.0301 [id number] Information not available 12/01/2022 What Is Your Level Of Caffeine Consumption? Moderate MIGRATION.0301 [id number] Information not available 12/01/2022 Are You Deaf Or Do You Have Serious Difficulty Hearing? Yes Hearing Aids MIGRATION.0301 [id number] Information not available 12/01/2022 What Type Of Diet Are You Following? REGULAR MIGRATION.0301 [id number] Information not available 12/01/2022 What Is Your Occupation? Retired MIGRATION.0301 [id number] Information not available 12/01/2022 Have There Been Any Changes To Your Family Or Social Situation? No MIGRATION.0301 [id number] Information not available 12/01/2022 What Is The Fluoride Status Of Your Home? Unknown MIGRATION.0301 [id number] Information not available 12/01/2022 Are There Any Guns Present In Your Home? No MIGRATION.0301 [id number] Information not available 12/01/2022 Do You Use Insect Repellent Routinely? Yes MIGRATION.0301 [id number] Information not available 12/01/2022 Where Do You Live? SingleLevelHouse With Basement MIGRATION.0301 [id number] Information not available 12/01/2022 Guns Present In The Home? No [email or web address] Information not available 08/21/2024 Are You Able To Care For Yourself? Yes Information not available 08/21/2024 Are You Blind Or Do Yo Have Difficulty Seeing? No [email or web address] Information not available 08/21/2024 Are You Deaf Or Do You Have Serious Difficulty Hearing? No [email or web address] Information not available 08/21/2024 Live Alone Of With Others? Alone [email or web address] Information not available 08/21/2024 What Was The Date Of Your Most Recent Tobacco Screening? 08/21/2024 Information not available 08/21/2024 Do You Have Any Pets? No MIGRATION.0301 [id number] Information not available 12/01/2022 What Is Your Relationship Status? [email or web address] Information not available 08/21/2024 Do You Use Your Seat Belt Or Car Seat Routinely? Yes [email or web address].0301 [id number] Information not available 12/01/2022 Do You Have Smoke And Carbon Monoxide Detectors In Your Home? Yes MIGRATION.0301 [id number] Information not available 12/01/2022 Are You Passively Exposed To Smoke? No MIGRATION.0301 [id number] Information not available 12/01/2022 Are There Any Smokers In Your House? No MIGRATION.0301 [id number] Information not available 12/01/2022 Do You Use Any Illicit Or Recreational Drugs? No MIGRATION.0301 [id number] Information not available 12/01/2022 Do You Use Sunscreen Routinely? Yes MIGRATION.0301 [id number] Information not available 12/01/2022 Has Tobacco Cessation Counseling Been Provided? No N/A MIGRATION.0301 [id number] Information not available 12/01/2022 Do You Have Any Dietary Restrictions? No MIGRATION.0301 [id number] Information not available 12/01/2022 Do You Or Have You Ever Used Any Other Forms Of Tobacco Or Nicotine? No MIGRATION.0301 [id number] Information not available 12/01/2022 Sex: Unknown Functional Status Question Answer Note LastModified by [employer] ion Details LastModified Time Do you have difficulty walking or climbing stairs? No [id number] Information not available 12/01/2022 Do you have transportation difficulties? No [id number].[id number] 026 Information not available 12/01/2022 Are you able to walk? YESWOREST MIGRATION.[id number] 026 Information not available 12/01/2022 Do you have difficulty doing errands alone? No [id number].[id number] 026 Information not available 12/01/2022 Are you able to care for yourself? Yes [id number] 026 Information not available 12/01/2022 Do you have difficulty dressing or bathing? No MIGRATION.[id number] 026 Information not available 12/01/2022 What is your exercise level? Occasional MIGRATION.[id number] 026 Information not available 12/01/2022 Mental Status Question Answer Note LastModified by [employer] ion Details LastModified Time Do you have difficulty concentrating, remembering or making decisions? No [id number] Information not available 12/01/2022 Family History Nothing Reported. Medical History Condition Response NERVE DISEASE N BLINDNESS N RHEUMATIC FEVER N KIDNEY STONES N BLADDER PROBLEMS N MRSA N OTHER # 1 N POLIO N LUNG DISEASE/DISORDER N HISTORY OF DRUG ABUSE N COPD N RADIATION / CHEMOTHERAPY N Other # 2 N BLOOD DISEASES N EAR OR HEARING PROBLEMS N MUMPS N SHINGLES N BOWEL PROBLEMS N DEPRESSION (INCLUDING POST ) N STROKE/TIA N ULCERS N BENIGN PROSTATIC HYPERPLASIA N MEASLES N HYPOTENSION N MYOCARDIAL INFARCTION N OBESITY N GERD/NAUSEA N ANEURYSM N URINARY/BLADDER/KIDNEY PROBLEMS N CORONARY ARTERY DISEASE (CAD) N ADDICTION CONCERNS N ENDOMETRIOSIS N Impotence N USE OF BLOOD THINNERS N SKIN PROBLEMS N GASTROINTESTINAL DISORDER N PERIPHERAL VASCULAR DISEASE N MUSCLE,JOINT OR BONE PROBLEMS N GASTROINTESTINAL BLEEDING N BLOOD CLOTS N ASTHMA N CATARACTS N ERECTILE DYSFUNCTION N VARICOSITIES N GI PROBLEMS N Low Testosterone N INFERTILITY N AIDS/HIV N CHEMOTHERAPY / RADIATION N LIVER DISEASE N MALE HYPOGONADISM N HYPERTENSION N Deficiency N TOURETTE'S N ANXIETY DISORDER N BLOOD TRANSFUSION N ANEMIA/BLOOD DISORDER N CHRONIC EAR INFECTIONS N BRONCHITIS N TUBERCULOSIS N GLAUCOMA N FOOT PROBLEM N DIVERTICULITIS N CHICKENPOX N SLEEP APNEA N INFECTIOUS DISEASE N HEART ARRHYTHMIA N PROSTATE N INSOMNIA N HIGH CHOLESTEROL / HYPERLIPIDEMIA N HYPERTHYROIDISM N EYE PROBLEMS N EDEMA N CHRONIC PAIN SYNDROME N HYPOTHYROIDISM N CAROTID BLOCKAGE N CONSTIPATION N BACK / NECK PROBLEMS N HAVE YOU BEEN HOSPITALIZED OR SEEN IN [facility] IN THE PAST YEAR ? N ATHEROSCLEROSIS N BREAST PROBLEMS N DIALYSIS N ECZEMA N OSTEOPOROSIS N ARTHRITIS N NO SIGNIFICANT PAST MEDICAL HISTORY N APPENDICITIS N DIABETES, TYPE N BAD TEETH N ENT N HEARTBURN / REFLUX Y AUTISM SPECTRUM DISORDER (ASD) N HEPATITIS / LIVER DISEASE N GOUT N SLEEP DISORDER N ALZHEIMER'S DISEASE N Brain Problems N HERPES N DEMENTIA N HEADACHES/MIGRAINES N SEIZURES/EPILEPSY N VASCULAR DISEASE N PACEMAKER N Blood Disorder N DIZZINESS N HEART DISEASE/HEART PROBLEMS N KIDNEY DISEASE N MULTIPLE SCLEROSIS N CARDIAC ARRHYTHMIA N CANCER: SPECIFY N ATRIAL FIBRILLATION N Gall Stones N PULMONARY EMBOLISM N AUTOIMMUNE DISEASE N Gynecological History Statement/Question Response Date of Last Pap Date of Last Mammogram Date of Last Colonoscopy Most Recent Bone Density Obstetrics History GPAL:G 0 P 0 0 0 0 Immunizations Vaccine Type Date Status Note Provider Nam e and Address Organization Details Recorded Time SARS-COV-2 (COVID-19) vaccine, UNSPECIFIED 3 completed Shahrzad jeong [employer] [facility] [employer] 08/19/2023 11:18:04 Influenza, high-dose, quadrivalent, PF 3 completed Shahrzad jeong [employer] [facility] [employer] 07/08/2023 16:35:11 SARS-COV-2 (COVID-19) vaccine, UNSPECIFIED 2 completed Not Available [facility] 12/01/2022 07:35:53 SARS-COV-2 (COVID-19) vaccine, UNSPECIFIED 1 completed Not Available [facility] 12/01/2022 07:35:53 Influenza, high-dose, trivalent, PF 2 completed Not Available [facility] 12/01/2022 07:35:54 COVID-19, mRNA, LNP-S, PF, 30 mcg/0.3 mL dose 1 completed Not Available [facility] 12/01/2022 07:35:54 SARS-COV-2 (COVID-19) vaccine, UNSPECIFIED 0 completed Not Available [facility] 12/01/2022 07:35:54 pneumococcal polysaccharide PPV23 8 completed Not Available [facility] 12/01/2022 07:35:54 Pneumococcal conjugate PCV 13 6 completed Not Available [facility] 12/01/2022 07:35:54 tetanus toxoid, adsorbed 8 completed Not Available [facility] 12/01/2022 07:35:54 Influenza, high-dose, quadrivalent, PF 1 completed Not Available [facility] 12/01/2022 07:35:54 Influenza, high-dose, quadrivalent, PF 2 completed Not Available [facility] 12/01/2022 07:35:54 Pneumococcal conjugate PCV20, polysaccharide [id number] conjugate, adjuvant, PF 4 completed ELDON Dixon, NAJMA - [facility] [employer] 08/21/2024 12:05:52 Past Encounters Encounter ID Performer Location Encounter Start Date Encounter Closed Date Diagnosis/Indication Diagnosis SNOMED-CT Code Diagnosis ICD10 Code Diagnosis Note [id number] [facility] [place] [address] [place] [address] y , [place] [address] 01/30/2021 00:00:00 01/30/2021 12:01:32 [id number] [facility] [place] [address] [place] [address] [place] [address] 07/17/2021 00:00:00 07/17/2021 12:11:11 [id number] [facility] [place] [address] [place] [address] [place] [address] 02/19/2022 00:00:00 02/19/2022 12:19:25 [id number] [facility] Internal [facility] [place] [address] [place] [address] [place] [address] 08/20/2022 00:00:00 08/20/2022 11:06:40 [id number] Chris Connolly MD [facility] Internal [facility] [place] [address] [place] [address] [place] [address] 02/18/2023 10:47:17 02/18/2023 12:22:17 Adult health examination 142199900 Z00.00 Screening for disorder 140068887 Z13.9 Hyperlipidemia 61777254 E78.5 Senile osteoporosis 1804 0001 M81.0 Gastroesop hageal reflux disease 236532455 K21.9 [id number] Chris Connolly MD [facility] Internal [facility] [place] [address] [place] [address] [place] [address] 08/19/2023 11:00:49 08/19/2023 11:30:17 Gastroesophageal reflux disease 953650871 K21.9 Osteoporosis 17327410 M8 1.0 [id number] Chris Cononlly MD [facility] Internal [facility] [place] [address] [place] [address] [place] [address] 02/28/2024 10:50:53 02/28/2024 11:24:22 Gastroesophageal reflux disease 102867807 K21.9 Screening for cardiovascular system disease 254092470 Z13.6 Fatigue 21241109 R53.83 [id number] Chris Connolly MD [facility] Primary [facility] [place] [address] [facility] [address] [place] [address] 08/21/2024 11:17:12 08/21/2024 11:51:03 Adult health examination 352168124 Z00.00 Screening for disorder 932084583 Z13.9 Gastroesop hageal reflux disease 344579013 K21.9 Hyperlipidemia 25227706 E78.5 Health Concerns Section Related Observation LastModified by Organization Detai ls LastModified Time None Recorded Concern Status LastModified by Organization Details LastModified Time None Recorded Advance Directives Directive N: Patient stated she alread y has the information at home. Payers Encounter Date Sequence Insurance Name Policy Number Policy Boone Covered Member ID Boone Member ID Guarantor Name 02/18/2023 1 [place] Erin Mojica Drew [id number] Erin Mojica Drew 02/18/2023 2 [employer] HE[employer]CARE OPTION - PLAN F (MEDICARE SUPPLEMENT) Erin Mojica Drew [id number] Erin Mojica Drew 08/19/2023 1 [place] Erin Mojica Drew [id number] Erin Mojica Drew 08/19/2023 2 [employer] HE[employer]CARE OPTION - PLAN F (MEDICARE SUPPLEMENT) Erin Mojica Drew [id number] Erin Mojica Drew 02/28/2024 1 [place] Erin Mojica Drew [id number] Erin Mojica Drew 02/28/2024 2 [employer] HE[employer] OPTION - PLAN F (MEDICARE SUPPLEMENT) Erin Mojica Drew [id number] Erin Mojica Drew 08/21/2024 1 [place] Erin Mojica Drew [id number] Erin Mojica Drew 08/21/2024 2 [employer] HE[employer] OPTION - PLAN F (MEDICARE SUPPLEMENT) Erin Mojica Drew [id number] Erin Mojica Drew Notes Date Note Type Note Provider Name and Address Organization Details Recorded Time 3 text/html Patient Name: Erin RussellDate Of Service: Tuesday ( 02.18.2023 ): 1945 Age: 77 Vital Signs:Blood Pressure: Sitting Rt. Arm 138/70Pulse: Sitting 71 /min and RegularRespirations: 12Height 62 in or 1.6 mWeight 135 lb or 61.2 kgBMI 24.7Temperature: 97.7 F or 36.5 CPulse Oximetry: 98 % at rest on no oxygen Chief Complaint: Addressed in HPI Problems or conditions discussed in the HPI were the only ones reviewed during the encounter.Only social and family history addressed in the HPI were reviewed during this encounter. A significant, separate E/M service was performed to evaluate the current and new problems. Attendant(s): None Constitutional and Systemic Symptoms: none Medication Reconciliation: from medication list. History of Present Illness Reviewed the findings of the preventative health visit. Addressed all areas with the patient, patient's family or caregivers. Preventative examinations and testing immunizations - vaccinations, colonic neoplasm screening, mammograms and DEXA Scan all reviewed and ordered where patient was amenable to the recommendations. Cognitive function was normal. Depression addressed and where necessary medications were adjusted or instituted. End of life and living will briefly discussed with patient and where these can be filled out and legally executed. Other blood and imaging studies were ordered if considered necessary. Other recommendations may be found in the encounter note. #1. Type II Hypercholesterolaemia: Currently not taking medication. No interval complaints of any muscle pain or arthralgia. No significant liver changes with medications. Last lipid panel: fair control. Therapy reviewed regarding treatment of cholesterol management and include diet. #2. Hx of esophageal reflux currently stable. Hx of Complications: none The severity, duration and intensity of symptoms have improved. Frequency: infrequent Treatment consists medications taken on intermittent basis. Current therapy includes Omeprazole. There has been no nausea, eructation, vomiting, hematemesis, dysphagia, velopharyngeal insufficiency and odynophagia. No change in he frequency or intensity of symptoms. Has had no melena. Has had no hematemesis. Discuss the possibility of trying to reduce the frequency of the use of any PPI inhibitors or H2 antagonist to see if symptoms can be controlled with last intensive therapy #3. osteoporosis. No new complaints of any additional back,hip or other musculoskeletal complaints related to the osteoporosis. No hx of any recent trauma. Currently taking OsCal-D and Fosamax. Has has had a recent DEXA scan done within the last year. The FRAX Score for Hip Fracture is NA hx osteoporosis FRAX score for major fractures NA hx of osteoporosisMedication List Reviewed and Reconciled 02/18/2023Unisom As DirectedOmeprazole 20 MG (CAPSULE, DELAYED REL PELLETS - ORAL) One DailyFosamax 70 MG (TABLET - ORAL) Once WeeklyOs-layla D DailyVaccination and Sbqzqehoyoau2980-42 Zsulscuek2051-59 Covid Booster Ipglpn2406-74 Covid Aqixbt9123-32 Pneumovax 129145-32 Prevnar 13Surgical HistoryBasel Cell CA nose, Basel Cell Rigth Taoism, Fracture Right WristPreventative Testing Confirmed by Our Fbzcxza3105/25/2022 DEXA SCAN05/13/2022 HAIC 5.5 %03/26/2022 ALBUMIN 4.3 G/DL11/17/2021 MAMMOGRAM UPPER ZEAYRPWVU56/11/2013 COLONOSCOPY (10 YEARS) 04/12/2023Social HistoryDoes not smoke. Quit back in 1983 and smoke for approximately 10 pack yearsDrinks sociallyRetired travel agentFamily HistoryMother 82 from CHFFather 69 from Type I DM and CHFOne brother living and in good health HTNOne sister living hx of viral cardiomyopathy Chris Connolly MD [address] [facility], [facility] [address], [place], [address], [facility] [employer] 02/18/2023 11:24:49 3 text/html Patient Name: Erin RussellDate Of Service: Tuesday ( 08.19.2023 ): 1945 Age: 77 Vital Signs:Blood Pressure: Sitting Rt. Arm 122/64Pulse: Sitting 71 /min and RegularRespiratory Rate: 12Height 62 in or 1.6 mWeight 134 lb or 60.8 kgBMI 24.5Temperature: 97 F or 36.1 CPulse Oximetry: 97 % at rest on no oxygen Chief Complaint: Addressed in HPI Problems or conditions discussed in the HPI were the only ones reviewed during the encounter.Only social and family history addressed in the HPI were reviewed during this encounter. Attendant(s): NoneConstitutional and Systemic Symptoms:none Medication Reconciliation: from medication list. History of Present Illness #1. Hx of esophageal reflux currently stable. Hx of Complications: none The severity, duration and intensity of symptoms have improved. Frequency: most meals Treatment consists medications taken on a regular basis. Current therapy includes Omeprazole. There has been no nausea, eructation, vomiting, hematemesis, dysphagia and velopharyngeal insufficiency. No change in he frequency or intensity of symptoms. Has had no melena. Has had no hematemesis. Discuss the possibility of trying to reduce the frequency of the use of any PPI inhibitors or H2 antagonist to see if symptoms can be controlled with last intensive therapy #2. osteoporosis. No new complaints of any additional back,hip or other musculoskeletal complaints related to the osteoporosis. No hx of any recent trauma. Currently taking OsCal-D and Fosamax. Has has had a recent DEXA scan done within the last year. The FRAX Score for Hip Fracture is NA hx osteoporosis FRAX score for major fractures NA hx of osteoporosisMedication List Reviewed and Reconciled 08/19/2023Unisom As DirectedOmeprazole 20 MG (CAPSULE, DELAYED REL PELLETS - ORAL) One DailyFosamax 70 MG (TABLET - ORAL) Once WeeklyOs-layla D DailyVaccination and Bjrotnrcwzni7548-35 Vaohnfffu1260-23 Covid Booster Dspkdv3164-64 Covid Byoffd5202-94 Qvghokqhr8437-70 Prevnar 13 GcSurgical HistoryBasel Cell CA nose, Basel Cell Rigth Taoism, Fracture Right WristPreventative Testing Confirmed by Our Mkphbid6103/03/2023 ALBUMIN 4.2 G/DL N005/25/2022 DEXA SCAN05/13/2022 HAIC 5.5 % N011/17/2021 MAMMOGRAM UPPER VDQZMFBZD51/11/2013 COLONOSCOPY (10 YEARS) 04/12/2023Social HistoryDoes not smoke. Quit back in 1983 and smoke for approximately 10 pack yearsDrinks sociallyRetired travel agentFamily HistoryMother 82 from CHFFather 69 from Type I DM and CHFOne brother living and in good health HTNOne sister living hx of viral cardiomyopathy Chris Connolly MD [address] [facility], [facility] [address], [place], [address], [facility] [employer] 08/19/2023 11:26:50 4 text/html Patient Name: Erin L. RussellDate Of Service: Tuesday ( 02.28.2024 ): 1945 Age: 78 Vital Signs:Blood Pressure: Sitting Rt. Arm 120/68Pulse: Sitting 80 /min and RegularRespiratory Rate: 12Height 63 in or 1.6 mWeight 133 lb or 60.3 kgBMI 23.6Temperature: 97 F or 36.1 CPulse Oximetry: 97 % at rest on no oxygen Chief Complaint: Addressed in HPI Problems or conditions discussed in the HPI were the only ones reviewed during the encounter.Only social and family history addressed in the HPI were reviewed during this encounter. Attendant(s): NoneConstitutional and Systemic Symptoms:none Medication Reconciliation: from medication list. History of Present Illness #1. Hx of esophageal reflux currently stable. Hx of Complications: none The severity, duration and intensity of symptoms have improved. Frequency: most meals Treatment consists medications taken on intermittent basis. Current therapy includes Famotidine p.r.n.. There has been no nausea, eructation, vomiting, hematemesis, dysphagia, velopharyngeal insufficiency and odynophagia. No change in he frequency or intensity of symptoms. Has had no melena. Has had no . Discussed use of H2 antagonists NA. Active Medication ListUnisom As DirectedFosamax 70 MG (TABLET - ORAL) Once WeeklyOs-layla D Daily Vaccination and Vpxmvlcpssls0107-83 Odgablddw3797-28 Covid Booster Anzlwt7549-48 Covid Dxuyvs2120-38 Iqmkgomcb0378-28 Prevnar 13 Gc Surgical Jymnfze5276-43 [facility] [place] dcqr1988-30 [facility] Rigth Ciexfs9328-42 Fracture Right Wrist Preventative Rshyktg3208/30/2023 COLOGUARD 606/10/2022 ALBUMIN 4.2 G/DL N005/25/2022 DEXA SCAN05/13/2022 HAIC 5.5 % N011/17/2021 MAMMOGRAM UPPER [id number]/11/2013 COLONOSCOPY (10 YEARS) 04/12/2023 Social HistoryDoes not smoke. Quit back in 1983 and smoke for approximately 10 pack yearsDrinks sociallyRetired travel ot Family HistoryMother 82 from CHFFather 69 from Type I DM and CHFOne brother living and in good health HTNOne sister living hx of viral cardiomyopathy Chris Connolly MD [address] [facility], [facility] [address], [place], [address], [facility] [employer] 02/28/2024 11:21:37 4 text/html Patient Name: Erin RussellDate Of Service: Tuesday ( 08.21.2024 ): 1945 Age: 78 There has been approximately a 2 lb weight loss since 02/28/2024. This represents approximately a 1.5% change in weight. Weight change attributable to lifestyle changes. Vital Signs:Blood Pressure: Sitting Rt. Arm 132/72Pulse: Sitting 71 /min and RegularRespiratory Rate: 16Height 63 in or 1.6 mWeight 131 lb or 59.4 kgBMI 23.2Temperature: 95 F or 35.0 CPulse Oximetry: 98 % at rest on no oxygen Chief Complaint: Addressed in HPI Problems or conditions discussed in the HPI were the only ones reviewed during the encounter.Only social and family history addressed in the HPI were reviewed during this encounter. A significant, separate E/M service was performed to evaluate the current and new problems. Attendant(s): NoneConstitutional and Systemic Symptoms:none Medication Reconciliation: from medication list. History of Present Illness Reviewed the findings of the preventative health visit. Addressed all areas with the patient, patient's family or caregivers. Preventative examinations and testing immunizations - vaccinations, colonic neoplasm screening and mammograms all reviewed and ordered where patient was amenable to the recommendations. Cognitive function was normal. Depression addressed and where necessary medications were adjusted or instituted. End of life and living will briefly discussed with patient and where these can be filled out and legally executed. Other blood and imaging studies were ordered if considered necessary. Other recommendations may be found in the encounter note. #1. Hx of esophageal reflux currently stable. Hx of Complications: none The severity, duration and intensity of symptoms have improved. Frequency: most meals Treatment consists medications taken on intermittent basis. Current therapy includes no medication. There has been no nausea, eructation, vomiting, hematemesis, dysphagia, velopharyngeal insufficiency and odynophagia. No change in he frequency or intensity of symptoms. Has had no melena. Has had no . Discussed use of H2 antagonists NA. #2. History of hypercholesterolaemia: History of the high cholesterol. Not taking any medications and being controlled by diet. No interval complaints of any chest pain, shortness of breath, orthopnea or other cardiovascular complaints. Last lipid panel: fair control Active Medication ListUnisom As DirectedFosamax 70 MG (TABLET - ORAL) Once WeeklyOs-layla D Daily Vaccination and Immunization( ) 2016-04 PREVNAR 13 GC(X) 2018-01 PNEUMOVAX PREVNAR 20 Needed(X) 2022- INFLUENZA( ) 2020- COVID PFIZER( ) 2024-07 COVID BOOSTER PFIZER Surgical Ixcjgjg5707-43 Basel Cell CA ynpi4191-87 Basel Cell Rigth Yqcgsf5627-31 Fracture Right Wrist Preventative Testing( ) 03/12/2024 Albumin 4.3 G/DL( ) 08/30/2023 Cologuard 08/30/2026(X) 05/25/2022 DEXA Scan 05/25/2024( ) 05/13/2022 HAIC 5.5 % N(X) 11/17/2021 Mammogram 11/17/2023(X) 07/31/2018 Upper Endoscopy 07/31/2020 Social HistoryDoes not smoke. Quit back in 1983 and smoke for approximately 10 pack yearsDrinks sociallyRetired travel ot Family HistoryMother 82 from CHFFather 69 from Type I DM and CHFOne brother living and in good health HTNOne sister living hx of viral cardiomyopathy TEST RESULT RANGE UNITSCBC/COMPLETE BLD COUNT W/DIFF Date: 03/12/2024WHITE BLOOD CELLS 7.5 4.2-10.8 X10'3/ULHEMOGLOBIN 12.7 12.0-15.6 G/DLHEMATOCRIT 38.1 35.7-45.7 %PLATELETS 223 150-400 X10'3/ULCOMPREHENSIVE METABOLIC PANEL Date: 03/12/2024SODIUM 137 137-145 MMOL/LPOTASSIUM 4.3 3.5-5.1 MMOL/LGLUCOSE 98 70-99 MG/DLBUN 10 8-19 MG/DLCREATININE 0.59 0.66-1.25 MG/DLGFR >60ALKALINE PHOSPHATASE 40 38-126 U/LALANINE AMINOTRANSFERASE 17 0-35 U/LASPARTATE AMINOTRANSFERASE 27 15-37 U/LBILIRUBIN, TOTAL 0.80 0.20-1.30 MG/DLCALCIUM 9.5 8.4-10.2 MG/DLLIPID PANEL Date: 4CHOLESTEROL 164 140-199 MG/DLTRIGLYCERIDES 123 0-150 MG/DLHDL CHOLESTEROL 64 40- MG/DLLDL CHOLESTEROL, CALCULATED 75 0-130 MG/DL Chris Connolly MD [address] [facility] [address], [place], [address], [place] [facility] 08/21/2024 11:47:00 OBGyn Episode No OBEpisode recorded.
--- OUTSIDE RECORDS SUMMARY | 2024-12-29 09:43 | XMS_ITS | Clinical Summary ---
Author Organization [facility] [employer] Address [address] [address] Care Team Providers Care Casing In Line Setter Name Role Phone Chris Connolly MD Primary Care Provider [phone] Source Comments [facility],non-[place] [facility] Affiliates and Associated Physician Practices is amultiple site organization consisting of ambulatory clinics and hospital sitesin [place], [place], [place] and [place]. This disclosure is being madepursuant to the Care Everywhere program and may not contain all information available regarding this patient. Last updated 18.[facility] [employer] Allergies Active Allergy Reactions Criticality Noted Date Comments Premarin Rash Medium 06/21/2017 Medications * Be aware that medications may not be up to date on this document. Alwaysverify current medications with the patient. Medication Sig Dispensed Refills Start Date End Date Status raNITIdine (ZANTAC) 150 MG tablet Take 150 mg by mouth once daily Active Other Take 2 tablets by mouth once daily Eye promise Active Active Problems Problem Noted Date Diagnosed Date Basal cell carcinoma of skin of other parts of f erna 08/05/2014 Family History Medical History Relation Name Comments Allergy (Severe) Neg Hx CVA Neg Hx Cancer Neg Hx Cancer - Breast Neg Hx Cancer - Skin, Melanoma Neg Hx Cancer - Skin, Non Melanoma Neg Hx Eczema Neg Hx Hemophilia Neg Hx Psoriasis Neg Hx Rashes/Skin Problems Neg Hx Social History Tobacco Use Types Packs/Day Years Used Date Smoking Tobacco: Former Smokeless Tobacco: Never Alcohol Use Standard Drinks/Week Comments Yes 0 (1 standard drink = 0.6 oz pur e alcohol) Sex and Gender Information Value Date Recorded Sex Assigned at Not on file Gender Identity Not on file Sexual Orientation Not on file Last Filed Vital Signs Vital Sign Reading Time Taken Comments Blood Pressure 145/76 02/08/2019 11:11 AM CDT Pulse 64 02/08/2019 11:11 AM CDT Temperature - - Respiratory Rate - - Oxygen Saturation 98% 02/08/2019 11:11 AM CDT Inhaled Oxygen Concentration - - Weight 63.5 kg (140 lb) 02/08/2019 8:32 AM CDT Height 160 cm (5' 3 ) 02/08/2019 8:32 AM CDT Body Mass Index 24.8 02/08/2019 8:32 AM CDT Plan of Treatment Health Maintenance Due Date Last Done Comments BONE DENSITY TESTING 1945 MEDICARE AWV 12 MONTHS 1945 HEPATITIS C SCREENING 09/16/1964 DTAP/TDAP/TD VACCINES (1 - Tdap) 1965 PNEUMOCOCCAL VACCINE 50+ (1 of 1 - PCV) 1996 ZOSTER VACCINE (1 of 2) 1996 Respiratory Syncytial Virus (RSV) Vaccine Pt: or over 60 yrs (1 - 1-dose 75+ series) 2021 COVID-19 VACCINE ( - 2023-2 5 season) 2024 INFLUENZA VACCINE (#1) 2024 DEPRESSION SCREENING 10/03/2024 HEPATITIS B VACCINE Aged Out No longe r eligible based on patient's age to complete this topic HIB VACCINE Aged Out No longer eligi ble based on patient's age to complete this topic HPV VACCINE Aged Out No longer eligi ble based on patient's age to complete this topic MENINGOCOCCAL (Group B) VACC INE SHARED DECISION-MAKING Aged Out No longer eligibl e based on patient's age to complete this topic MENINGOCOCCAL GROUPS A/C/Y/W VACCINE Aged Out No longer eligible b ased on patient's age to complete this topic Insurance Payer Benefit Plan / Group Subscriber ID Effective Dates Phone Address Type MEDICARE S MEDICARE PART B [id number] 09/02/2011-Pres ent [address] [address] [place] [address] Medicare AAR AARP MEDICARE SUPPLEMENT [id number] 09/02/2011-Pres ent [address] [place] [address] Commercial MEDICARE WPS MEDICARE PART B [id number] 09/02/2011-Pres ent [address] [address] [place] [address] Medicare AARP AARP MEDICARE SUPPLEMENT [id number] 09/02/2011-Pres ent [address] [place] [address] Commercial MEDICARE WPS MEDICARE PART B [id number] 09/02/2011-Pres ent [address] [address] [place] [address] Medicare AARP AARP MEDICARE SUPPLEMENT [id number] 09/02/2011-Pres ent [address] [place] [address] Commercial MEDICARE WPS MEDICARE PART B [id number] 09/02/2011-Pres ent [address] [address] [place] [address] Medicare AARP AARP MEDICARE SUPPLEMENT [id number] 09/02/2011-Pres ent [address] [place] [address] Commercial MEDICARE WPS MEDICARE PART B [id number] 09/02/2011-Pres ent [address] [address] [place] [address] Medicare AARP AARP MEDICARE SUPPLEMENT [id number] 09/02/2011-Pres ent [address] [place] [address] Commercial MEDICARE WPS MEDICARE PART B [id number] 09/02/2011-Pres ent [address] [address] [place] [address] Medicare AARP AARP MEDICARE SUPPLEMENT [id number] 09/02/2011-Pres ent [address] [place] [address] Commercial MEDICARE WPS MEDICARE PART B [id number] 09/02/2011-Pres ent [address] [address] [place] [address] Medicare AARP AARP MEDICARE SUPPLEMENT [id number] 09/02/2011-Pres ent [address] [place] [id number] Commercial MEDICARE WPS MEDICARE PART B [id number] 09/02/2011-Pres ent [address] [address] [place] [address] Medicare AARP AARP MEDICARE SUPPLEMENT [id number] 09/02/2011-Pres ent [address] [place] [address] Commercial Care Teams Casing In Line Setter Relationship Specialty Start Date End Date Chris Connolly MD [facility] [address] [address] [place] [address] PCP - General 02/08/19
--- OUTSIDE RECORDS SUMMARY | 2024-12-29 09:43 | XMS_ITS | CONTINUITY OF CARE DOCUMENT ---
Author Name brennananiyajacob Address Unknown Organization [facility] Address [address] [place] [address] Phone [phone] Care Team Providers Care Lard Renderer Name Role Phone Compa Correa MD Unavailable [phone] CRUZ MORRIS MD Unavailable [phone] CRUZ MORRIS MD Unavailable INSURANCE PROVIDERS Payer name Policy type / Coverage type [place] red libertarian ID AARP Commercial insurance company [id number] [place] Medicare [id number]
--- OUTSIDE RECORDS SUMMARY | 2024-12-29 09:43 | XMS_ITS | Encounter Summary ---
Author Organization [facility] Address [address] [place] [address] Care Team Providers Care Craft Worker Name Role Phone Dorian Bojorquez MD Primary Care Provider [phone] Chris Connolly MD Primary Care Provider [phone] Encounter Details Date Type Department Care Team (Late st Contact Info) Description 12/07/2018 Lab Requisition [facility] Care DermPath Lab [address] [place] [address] Arthur Snow MD [address] [place] [address] Social History Tobacco Use Types Packs/Day Years Used Date Smoking Tobacco: Former Smokeless Tobacco: Never Alcohol Use Standard Drinks/Week Comments Yes 0 (1 standard drink = 0.6 oz pur e alcohol) Sex and Gender Information Value Date Recorded Sex Assigned at Not on file Gender Identity Not on file Sexual Orientation Not on file documented as of this encounter Plan of Treatment Not on file documented as of this encounter Procedures Procedure Name Priority Date/Time Associated Diagnosis Comments DERMATOPATHOLOGY Routine 12/06/2018 12:0 0 AM EDUCATIONAL ADMINISTRATION TEACHER documented in this encounter Results * DERMATOPATHOLOGY (12/06/2018 12:00 AM EDUCATIONAL ADMINISTRATION TEACHER) Case Report Dermatopathology Report Case: [id number] Authorizing Provider: Arthur Snow MD Collected: 12/06/2018 12:00 AM Pathologist: Tammy Royal MD Received: 12/07/2018 12:49 PM Specimens: A) - Skin, right upper cutaneous lip B) - Skin, left gnosticist C) - Skin, left anterior upper arm 3:56 PM [facility] DERMATOPATHOLOGY LABORATORY Final Diagnosis Specimen A. SKIN, right upper cutaneous lip: ACTINIC KERATOSIS (L57.0) SOLAR ELASTOSIS AND VASCULAR ECTASIA (L57.8) (see microscopic description) Specimen B. SKIN, left gnosticist: BASAL CELL CARCINOMA, SUPERFICIAL MULTIFOCAL (C44.319) Specimen C. SKIN, left anterior upper arm: PSORIASIFORM DERMATITIS (L44.8) (see microscopic description and comment) 3:56 PM [facility] DERMATOPATHOLOGY LABORATORY Clinical History A-B: R/O BCC. C: R/O HAK, BCC. 3:56 PM [facility] DERMATOPATHOLOGY LABORATORY Gross Description Specimen A: Received is one formalin filled container labeled with the patient's name and designated right upper cutaneous lip. The specimen consists of a shave biopsy measuring [id number]. Jar 0. Specimen B: Received is one formalin filled container labeled with the patient's name and designated left gnosticist. The specimen consists of a shave biopsy measuring [id number]. Jar 0. Specimen C: Received is one formalin filled container labeled with the patient's name and designated left anterior upper arm. The specimen consists of a shave biopsy measuring [id number]. Jar 0. 3:56 PM [facility] DERMATOPATHOLOGY LABORATORY Microscopic Description Specimen A. SKIN, right upper cutaneous lip: There is focal parakeratosis. The lower half of the epidermis shows disorderly maturation of keratinocytes with nuclear pleomorphism. The dermis shows olar elastosis and vascular ectasia. Additional deeper sections were obtained and reviewed. Specimen B. SKIN, left gnosticist: Attached to the undersurface of the epidermis, there are small aggregates of basaloid cells with a high nuclear to cytoplasmic ratio and peripheral palisading. Specimen C. SKIN, left anterior upper arm: There is psoriasiform hyperplasia of the epidermis with focal parakeratosis and spongiosis. There is a superficial, mainly lymphohistiocytic inflammatory infiltrate. Grocott's methenamine silver (GMS) stain fails to highlight fungal elements in the available sections. COMMENT: The histological findings ar most consistent with a psoriasiform keratosis. If an inflammatory dermatitis is a clinical concern, early / partially treated psoriasis and a chronic eczematous dermatitis such as nummular eczema can be considered. Clinicopathologic correlation is recommended. 9 3:56 PM EDUCATIONAL ADMINISTRATION TEACHER DERMATOPATHOLOGY LABORATORY Disclaimer An external and internal positive and negative controls are appropriate for the histochemical, immunohistochemical and immunofluorescence stain(s) in this case (if any), except where stated explicitly. The performance characteristics of the stain(s) cited in this report were developed and its performance characteristic determined by the Dermatopathology Laboratory at [facility], directed by Dr. Jhony Roche. These tests need not be, and therefore are not, approved by the [place] Food and Drug Administration. The tests are used for clinical purposes. Billing Codes Specimen Charges Stain Charges 55685 85779 57493 1 1 1 44318 1 9 3:56 PM EDUCATIONAL ADMINISTRATION TEACHER DERMATOPATHOLOGY LABORATORY Embedded Images 9 3:56 PM EDUCATIONAL ADMINISTRATION TEACHER DERMATOPATHOLOGY LABORATORY Pathology/Cytology TISSUE SPECIMEN FROM SKIN / Unknown 12/06/2018 12/07/2018 12:49 PM EDUCATIONAL ADMINISTRATION TEACHER Miscellaneous samples (specimen) TISSUE SPECIMEN FROM SKIN / Unknown 12/06/2018 12/07/2018 12:49 PM EDUCATIONAL ADMINISTRATION TEACHER Miscellaneous samples (specimen) TISSUE SPECIMEN FROM SKIN / Unknown 12/06/2018 12/07/2018 12:49 PM EDUCATIONAL ADMINISTRATION TEACHER Arthur Snow MD LAB - PATHOLOGY/CYTO LOGY ORDERABLES DERMATOPATHOLOGY LABORATORY [facility] - Department of Dermatology [address] [place] [address], 5th Floor Lab [address] [phone] documented in this encounter Visit Diagnoses Not on filedocumented in this encounter Care Teams Craft Worker Relationship Specialty Start Date End Date Dorian Bojorquez MD [address] [place] [address] PCP - General 06/21/17 02/07/19 Chris Connolly MD [address] [address] [address] [place] [address] PCP - General 02/08/19 documented as of this encounter
--- OUTSIDE RECORDS SUMMARY | 2024-12-29 10:35 | XMS_ITS | Clinical Summary ---
Author Organization [facility] Address [address] [place] [address] Care Team Providers Care Row Boss Name Role Phone Chris Connolly MD Primary Care Provider [phone] Source Comments [facility],non-[facility] Affiliates and Associated Physician Practices is amultiple site organization consisting of ambulatory clinics and hospital sitesin [place], [place], [place] and [place]. This disclosure is being madepursuant to the Care Everywhere program and may not contain all information available regarding this patient. Last updated 18.[facility] Allergies Active Allergy Reactions Criticality Noted Date [...] Address Type MEDICARE S MEDICARE PART B [id number] 09/02/2011-Pres ent [address] [address] [place] [address] Medicare AAR AARP MEDICARE SUPPLEMENT [id number] 09/02/2011-Pres ent [address] [place] [address] Commercial MEDICARE WPS MEDICARE PART B [id number] 09/02/2011-Pres ent [address] [address] [place] [address] Medicare AARP AARP MEDICARE SUPPLEMENT [id number] 09/02/2011-Pres ent [address] [place] [address] Commercial MEDICARE WPS MEDICARE PART B [id number] 09/02/2011-Pres ent [address] [address] [place] [address] Medicare AARP AARP MEDICARE SUPPLEMENT [id number] 09/02/2011-Pres ent [address] [place] [address] Commercial MEDICARE WPS MEDICARE PART B [id number] 09/02/2011-Pres ent [address] [address] [place] [address] Medicare AARP AARP MEDICARE SUPPLEMENT [id number] 09/02/2011-Pres ent [address] [place] [address] Commercial MEDICARE WPS MEDICARE PART B [id number] 09/02/2011-Pres ent [address] [address] [place] [address] Medicare AARP AARP MEDICARE SUPPLEMENT [id number] 09/02/2011-Pres ent [address] [place] [address] Commercial MEDICARE WPS MEDICARE PART B [id number] 09/02/2011-Pres ent [address] [address] [place] [address] Medicare AARP AARP MEDICARE SUPPLEMENT [id number] 09/02/2011-Pres ent [address] [place] [address] Commercial MEDICARE WPS MEDICARE PART B [id number] 09/02/2011-Pres ent [address] [address] [place] [address] Medicare AARP AARP MEDICARE SUPPLEMENT [id number] 09/02/2011-Pres ent [address] [place] [phone] Commercial MEDICARE WPS MEDICARE PART B [id number] 09/02/2011-Pres ent [address] [address] [place] [address] Medicare AARP AARP MEDICARE SUPPLEMENT [id number] 09/02/2011-Pres ent [address] [place] [address] Commercial Care Teams Row Boss Relationship Specialty Start Date End Date Chris Connolly MD [facility] [address] [address] [place] [address] PCP - General 02/08/19
--- OUTSIDE RECORDS SUMMARY | 2024-12-29 10:35 | XMS_ITS | Clinical Summary ---
Author Organization [facility] [address] [place] Address [address] [place] [address] Care Team Providers Care Barrel Cutter Name Role Phone Chris Connolly MD Primary Care Provider Allergies Active Allergy Reactions Criticality Noted Date Comments Conjugated Estrogens Rash Medium 06/21/2017 Medications raNITIdine (ZANTAC) 150 mg tablet Take 150 mg by mouth daily Active alendronate (FOSAMAX) 70 mg/75 mL solution Take by mouth every 7 days Take in the morning with a full glass of water, on an empty stomach, and do not take anything else by mouth or lie down for the next 30 min. Active Active Problems Problem Noted Date Diagnosed Date Palpitations 02/04/2015 Biliary calculus 12/01/2011 Family History Medical History Relation Name Comments Hypertension Brother Family history of hypertension - (Added by TW Conv) Heart failure Father Family history of heart failure - (Added by TW Conv) Relation Name Status Comments Brother Father Social History Tobacco Use Types Packs/Day Years Used Date Smoking Tobacco: Former Tobacco Cessation:Counseling Given: Not Answered Personal Safety Answer Date Recorded Getting School Help Needed Not on file 12/16 Comments Unknown Sex and Gender Information Value Date Recorded Sex Assigned at Not on file Legal Sex Female 3:46 AM SOFTWARE SUPPORT ENGINEER Gender Identity Not on file Sexual Orientation Not on file Obstetrics History Last Filed Vital Signs Vital Sign Reading Time Taken Comments Blood Pressure 144/83 08/03/2022 2:47 PM CDT Pulse 75 08/03/2022 2:47 PM CDT Temperature 37.3 C (99.2 F) 08/03/2022 2:47 PM CDT Respiratory Rate 18 08/03/2022 2:47 PM CDT Oxygen Saturation 96% 08/03/2022 2:47 PM CDT Inhaled Oxygen Concentration - - Weight 59.9 kg (132 lb) 08/03/2022 2:47 PM CDT Height 157.5 cm (5' 2 ) 08/03/2022 2:47 PM CDT Body Mass Index 24.14 08/03/2022 2:47 PM CDT Plan of Treatment Health Maintenance Due Date Last Done Comments Depression Screening 1945 Fall Risk Assessment 1945 Hepatitis C Screening 1945 Osteoporosis Screening-Bone Density Scan 1945 Hepatitis B Screening 1964 Zoster Vaccine (1 of 2) 1996 DTaP/Tdap/Td Vaccine (1 - Tdap) 11/08/2007 8 Well Visit 65+ 2011 Covid-19 Vaccine (5 - 2023-2 5 season) 2024 06/29/2022, 08/24/2021, 02/16/2021, Additional history exists Influenza Vaccine (#1) 2024 0, 09/24/2019, 08/04/2018, Additional history exists Pneumococcal vaccine 65+ Completed 018, 02/01/2018, 04/29/2016, Additional history exists Insurance MEDICARE [facility] MEDICARE [facility] Care Teams Barrel Cutter Relationship Specialty Start Date End Date Chris Connolly MD [address] [place] [address] PCP - General Internal Medicine 08/03/22
--- OUTSIDE RECORDS SUMMARY | 2024-12-29 10:35 | XMS_ITS | CONTINUITY OF CARE DOCUMENT ---
Author Name brennananiyajacob Address Unknown Organization [facility] Address [address] [place] [address] Phone [phone] Care Team Providers Care Meter Tester Polyphase Name Role Phone Compa Correa MD Unavailable [phone] CRUZ MORRIS MD Unavailable [phone] CRUZ MORRIS MD Unavailable [phone] INSURANCE PROVIDERS Payer name Policy type / Coverage type [place] red green party ID AARP Commercial insurance company [id number] [place] Medicare [id number]
--- OUTSIDE RECORDS SUMMARY | 2024-12-29 10:35 | XMS_ITS | Encounter Summary ---
Author Organization [facility] Address [address] [place] [address] Care Team Providers Care Apparel Stock Checker Name Role Phone Dorian Bojorquez MD Primary Care Provider [phone] Chris Connolly MD Primary Care Provider [phone] Encounter Details Date Type Department Care Team (Late st Contact Info) Description 12/07/2018 Lab Requisition [facility] Care DermPath Lab [address] [facility] [place], [place] [address] Arthur Snow MD [address] [place] [address] Social History Tobacco Use Types [...] Comments DERMATOPATHOLOGY Routine 12/06/2018 12:0 0 AM COLOR RECEIVER documented in this encounter Results * DERMATOPATHOLOGY (12/06/2018 12:00 AM COLOR RECEIVER) Case Report Dermatopathology Report Case: [id number] Authorizing Provider: Arthur Snow MD Collected: 12/06/2018 12:00 AM Pathologist: Tammy Royal MD Received: 12/07/2018 12:49 PM Specimens: A) - Skin, right upper cutaneous lip B) - Skin, left buddhist C) - Skin, left anterior upper arm 3:56 PM [facility] DERMATOPATHOLOGY LABORATORY Final Diagnosis Specimen A. SKIN, right upper cutaneous lip: ACTINIC KERATOSIS (L57.0) SOLAR ELASTOSIS AND VASCULAR ECTASIA (L57.8) (see microscopic description) Specimen B. SKIN, left buddhist: BASAL CELL CARCINOMA, SUPERFICIAL MULTIFOCAL (C44.319) Specimen C. SKIN, left anterior upper arm: PSORIASIFORM DERMATITIS (L44.8) (see microscopic description and comment) 3:56 PM [facility] DERMATOPATHOLOGY LABORATORY Clinical History A-B: R/O BCC. C: R/O HAK, BCC. 3:56 PM [facility] DERMATOPATHOLOGY LABORATORY Gross Description Specimen A: Received is one formalin filled container labeled with the patient's name and designated right upper cutaneous lip. The specimen consists of a shave biopsy measuring [id number]. Jar 0. Specimen B: Received is one formalin filled container labeled with the patient's name and designated left buddhist. The specimen consists of a shave biopsy measuring [id number]. Jar 0. Specimen C: Received is one formalin filled container labeled with the patient's name and designated left anterior upper arm. The specimen consists of a shave biopsy measuring [id number]. Jar 0. 3:56 PM [facility] DERMATOPATHOLOGY LABORATORY Microscopic Description Specimen A. SKIN, right upper cutaneous lip: There is focal parakeratosis. The lower half of the epidermis shows disorderly maturation of keratinocytes with nuclear pleomorphism. The dermis shows olar elastosis and vascular ectasia. Additional deeper sections were obtained and reviewed. Specimen B. SKIN, left buddhist: Attached to the undersurface of the epidermis, [...] Clinicopathologic correlation is recommended. 9 3:56 PM COLOR RECEIVER DERMATOPATHOLOGY LABORATORY Disclaimer An external and internal positive and negative controls are appropriate for the histochemical, immunohistochemical and immunofluorescence stain(s) in this case (if any), except where stated explicitly. The performance characteristics of the stain(s) cited in this report were developed and its performance characteristic determined by the Dermatopathology Laboratory at [facility], directed by Dr. Jhony Roche. These tests need not be, and therefore are not, approved by the [place] Food and Drug Administration. The tests are used for clinical purposes. Billing Codes Specimen Charges Stain Charges 02222 18547 55536 1 1 1 45018 1 9 3:56 PM COLOR RECEIVER DERMATOPATHOLOGY LABORATORY Embedded Images 9 3:56 PM COLOR RECEIVER DERMATOPATHOLOGY LABORATORY Pathology/Cytology TISSUE SPECIMEN FROM SKIN / Unknown 12/06/2018 12/07/2018 12:49 PM COLOR RECEIVER Miscellaneous samples (specimen) TISSUE SPECIMEN FROM SKIN / Unknown 12/06/2018 12/07/2018 12:49 PM COLOR RECEIVER Miscellaneous samples (specimen) TISSUE SPECIMEN FROM SKIN / Unknown 12/06/2018 12/07/2018 12:49 PM COLOR RECEIVER Arthur Snow MD LAB - PATHOLOGY/CYTO LOGY ORDERABLES DERMATOPATHOLOGY LABORATORY [facility] - Department of Dermatology [address] [place] [address], 5th Floor Lab [address] [phone] documented in this encounter Visit Diagnoses Not on filedocumented in this encounter Care Teams Apparel Stock Checker Relationship Specialty Start Date End Date Dorian Bojorquez MD [address] [place] [address] PCP - General 06/21/17 02/07/19 Chris Connolly MD [address] [address] [address] [place] [address] PCP - General 02/08/19 documented as of this encounter
--- OUTSIDE RECORDS SUMMARY | 2024-12-29 10:35 | XMS_ITS | Referral Summary ---
Author Organization [facility] [address] [place] Address [address] [place] [address] Care Team Providers Care Forestry And Wildlife Manager Name Role Phone Chris Connolly MD Primary [...] Diagnosed Date Palpitations 02/04/2015 Biliary calculus 12/01/2011 Social History Tobacco Use Types Packs/Day Years Used Date Smoking Tobacco: Former Tobacco Cessation:Counseling Given: Not Answered Personal Safety Answer Date Recorded Getting School Help Needed Not on file 12/16 Comments Unknown Sex and Gender Information Value Date Recorded Sex Assigned at Not on file Legal Sex Female 3:46 AM CRIMINAL LEGAL ASSISTANT Gender Identity Not on file Sexual Orientation [...] 08/03/2022 2:47 PM CDT Plan of Treatment Not on file Insurance MEDICARE [facility] MEDICARE [facility] Care Teams Forestry And Wildlife Manager Relationship Specialty Start Date End Date Chris Connolly MD [address] [facility] [place] [phone] PCP - General Internal Medicine 08/03/22
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
[2024-12-29] MEDS: LIDOCAINE 5% PATCH 1 PATCH TRANSDERM (10:56)
== END 2024-12-29 11:45 | disposition home or self-care (01) ==
PROVIDERS: Emergency Provider Student in an Organized Health Care Education/Training Program; PCP Internal Medicine
DX: S49.91XA Unspecified injury of right shoulder and upper arm, initial encounter (principal); Z87.891 Personal history of nicotine dependence; M19.011 Primary osteoarthritis, right shoulder; W10.1XXA Fall (on)(from) sidewalk curb, initial encounter
CPT/HCPCS: 73010; 99283; A9270

== ENCOUNTER 2025-07-08 12:24 | Outpatient (CLI) | payer MEDICARE, SELFPAY ==
--- NOTE | ~2025-07-08 | DEXA_ITS ---
Bone Density Report Name: JOSUÉ BAKER Age: 79 Sex: Female Ethnicity: White Date of : 1945 Indication: osteopenia; parental hip fracture; height loss; Referring Provider: SHAW, JERICHO Tracey Study: Bone densitometry was performed. Exam Date: July 08, 2025 Accession number: [id number] Bone Density: Region BMD T-score Z-score Classification AP Spine(L1-L4) 1.106 0.5 3.1 Normal Femoral Neck (Left) 0.676 -1.6 0.7 Osteopenia Total Hip (Left) 0.776 -1.4 0.6 Osteopenia Femoral Neck (Right) 0.686 -1.5 0.8 Osteopenia Total Hip (Right) 0.732 -1.7 0.3 Osteopenia Total Hip Mean 0.754 -1.6 0.5 Osteopenia World Health Organization criteria for BMD impression classify patients as: Normal (T-score at or above -1.0), Osteopenia (T-score between -1.0 and -2.5), or Osteoporosis (T-score at or below -2.5). 10-year Fracture Risk(1): Major Osteoporotic Fracture 21% Hip Fracture 12% Reported Risk Factors: [place] (), Neck BMD=0.676, BMI=21.1, parental fracture (1) FRAX(R) Version 3.08. Fracture probability calculated for an untreated patient. Fracture probability may be lower if the patient has received treatment. Previous Exams: -- Region Exam Age BMD T-score BMD Change BMD Change Date g/cm2 vs Baseline vs Previous -- AP Spine (L1-L4) 07/08/2025 79 1.106 0.5 -2.8%* -2.8%* 05/25/2022 76 1.138 0.8 Total Hip(Left) 07/08/2025 79 0.776 -1.4 -7.3%* -7.3%* 05/25/2022 76 0.838 -0.9 Total Hip(Right) 07/08/2025 79 0.732 -1.7 -6.0%* -6.0%* 05/25/2022 76 0.780 -1.3 -- *Denotes significance at 95% confidence level, LSC for AP Spine = 0.022 g/cm2, LSC for Total Hip = 0.027 g/cm2 Clinical Information Provided by Patient: Parent has had a hip fracture Has used the following medications: Fosamax (i.e. alendronate), Vitamin D, Calcium Patient maximum height was 64 Menopause Age: 41 No regular weight bearing exercise Drinks caffeinated beverages Onset of menses at age 14 Number of children 0 Impression: The patient has low bone mass, based on the Right Total Hip T-score. The patient has an estimated ten-year risk of hip fracture of 12% and an estimated ten-year risk of major fracture of 21%, based on the WHO FRAX algorithm. The patient has risk factors, including: parental hip fracture. The BMD for the AP Spine (L1-L4) decreased, changing by -2.8% since the last DXA exam. The BMD for the Total Hip(Left) decreased, changing by -7.3% since the last DXA exam. The BMD for the Total Hip(Right) decreased, changing by -6.0% since the last DXA exam. Discussion: BONE DENSITY IS LOW AT ONE OR MORE SKELETAL SITES. THE PATIENT'S BMD AND CLINICAL RISK FACTORS CONTRIBUTE TO THIS PATIENT'S HIGH RISK OF FRACTURE. This patient's lowest T-score is low at one or more skeletal sites. It meets the World Health Organization's (WHO) criteria for ?low bone mass? (T-score between -1.0 and -2.5). The patient's 10-year risk of hip fracture and 10 year risk of a major osteoporotic fracture as calculated by FRAX exceeds the threshold where pharmacological therapy is recommended by the National Osteoporosis Foundation (NOF). However, all treatment decisions require clinical judgment and consideration of individual patient factors, including patient preferences, comorbidities, previous drug use, risk factors not captured in the FRAX model (e.g., frailty, falls, vitamin D deficiency, increased bone turnover, interval significant decline in bone density) and possible under or overestimation of fracture risk by FRAX. The patient should follow a healthful lifestyle (good nutrition with adequate calcium and vitamin D, and appropriate weight-bearing exercise). Follow-Up: Consider a repeat BMD and Vertebral Fracture Assessment (VFA) exam in 2 years or sooner if medically necessary, to reassess this patient's status. Reported by: SOLITARIO on 07/08/2025 12:50:00 PM. Reviewed, dictated and finalized at location A.
== END 2025-07-08 12:25 | disposition home or self-care (01) ==
LOC: MICIMG 12:27
PROVIDERS: PCP Nurse Practitioner; Visit Provider Nurse Practitioner
DX: M81.0 Age-related osteoporosis without current pathological fracture (principal); M85.852 Other specified disorders of bone density and structure, left thigh; M85.851 Other specified disorders of bone density and structure, right thigh
CPT/HCPCS: 77080